=== PATIENT | male | born 1940 | race Caucasian/White ===

== ENCOUNTER 2018-01-16 08:23 | Inpatient (IN) | payer MEDICARE ==
--- NOTE | 2018-01-16 08:47 | ED ---
General Adult HPI - General Chief complaint: Shortness of Breath Stated complaint: SOB Source: patient Mode of arrival: ambulatory Limitations: no limitations - History of Present Illness Initial comments: Dictation was produced using [employer] dictation software. please excuse any grammatical, word or spelling errors. Chief Complaint: 77-year-old male with past medical history of coronary artery disease, quintuple bypass CABG, dyslipidemia, hypertension presents with shortness breath. History of Present Illness: Patient is a 77-year-old male presents with exertional shortness of breath. He states that he had a recent medication adjustment performed by his wild life manager to lower his blood pressure. After the change of medication he began having worsening exertional shortness of breath. He is also having increased weight gain and orthopnea. Patient denies any chest pain. He was seen by his family physician recently and started on Lasix. Denies any cough. No constitutional symptoms. Patient also had recent weight gain over the past 3 weeks. He states he gained approximately 10 pounds in 4 days. The ROS documented in this emergency department record has been reviewed and confirmed by me. Those systems with pertinent positive or negative responses have been documented in the HPI. All other systems are other negative and/or noncontributory. - Related Data Home Medications Medication Instructions Recorded Confirmed Aspirin EC [Ecotrin] 81 mg PO DAILY 08/31/14 08/31/14 Atorvastatin [Lipitor] 20 mg PO DAILY 08/31/14 08/31/14 Cholecalciferol [Vitamin D3] 2,000 unit PO DAILY@1200 08/31/14 08/31/14 Colesevelam [Welchol] 1,875 mg PO AC-BID 08/31/14 08/31/14 Furosemide [Lasix] 20 mg PO DAILY 08/31/14 08/31/14 Insulin NPH Hum/Reg Insulin Hm 45 unit SQ BID 08/31/14 08/31/14 [NovoLIN 70-30 100 UNIT/ML VIAL] Metoprolol Tartrate 75 mg PO BID 08/31/14 08/31/14 Multivitamins, Thera [Theragran] 1 each PO DAILY@1200 08/31/14 08/31/14 Pantoprazole Sodium 40 mg PO DAILY 08/31/14 08/31/14 Quinapril HCl [Accupril] 20 mg PO BID 08/31/14 08/31/14 metFORMIN HCL [Glucophage] 500 mg PO BID 08/31/14 08/31/14 Previous Rx's Medication Instructions Recorded Azithromycin [Zithromax Tri-Josue] 500 mg PO DAILY #3 tab 08/31/14 Allergies Allergy/AdvReac Type Severity Reaction Status Date / Time No Known Allergies Allergy Verified 01/16/18 08:28 Review of Systems ROS Statement: Those systems with pertinent positive or pertinent negative responses have been documented in the HPI. ROS Other: All systems not noted in ROS Statement are negative. Past Medical History Past Medical History: Coronary Artery Disease (CAD), Diabetes Mellitus, Hyperlipidemia, Hypertension History of Any Multi-Drug Resistant Organisms: None Reported Past Surgical History: Coronary Bypass/CABG Additional Past Surgical History / Comment(s): medical history - neuropathy, peripheral vascular disease. surgical history - angioplasty, foot surgery Past Psychological History: No Psychological Hx Reported Smoking Status: Never smoker Past Alcohol Use History: Occasional Past Drug Use History: None Reported General Exam - General Exam Comments Initial Comments: PHYSICAL EXAM: General Impression: Alert and oriented x3, not in acute distress HEENT: Normocephalic atraumatic, extra-ocular movements intact, pupils equal and reactive to light bilaterally, mucous membranes moist. Cardiovascular: Heart regular rate and rhythm, S1&S2 audible, no murmurs, rubs or gallops Chest: Lung crackling to the left posterior lung base Abdomen: Bowel sounds present, abdomen soft, non-tender, non-distended, no organomegaly Musculoskeletal: Pulses present and equal in all extremities, 2+ pitting edema Motor: Power 5/5 bilaterally, no focal deficits noted Neurological: CN II-XII grossly intact, no focal motor or sensory deficits noted Skin: Intact with no visualized rashes Psych: Normal affect and mood Limitations: no limitations Course Vital Signs 01/16/18 01/16/18 01/16/18 08:23 08:40 08:44 Temperature 98.8 F Pulse Rate 64 67 Respiratory 18 18 20 Rate Blood Pressure 150/73 156/72 O2 Sat by Pulse 95 95 Oximetry 01/16/18 09:30 Temperature Pulse Rate 62 Respiratory 18 Rate Blood Pressure 135/64 O2 Sat by Pulse 98 Oximetry Medical Decision Making - Medical Decision Making ED course: 77-year-old male with clinical presentation consistent with CHF exacerbation. Vital signs upon arrival are within acceptable limits. Patient does appear to be in mild respiratory distress however is not hypoxic. Does not require Supplemental oxygen at this time. No BiPAP indicated. Laboratory evaluation obtained. CBC is unremarkable. Coag panel is unremarkable. Metabolic panel shows elevation in creatinine of 1.49 which appears to be at his baseline compared to previous renal markers. Glucose is 147. Cardiac enzymes are negative. Urinalysis is negative. Chest x-ray does not show an acute processes. Clinical presentation is consistent for mild CHF exacerbation. Patient be admitted and would likely benefit from gentle diuresis and cardiology consultation. Patient given aspirin, Lasix. EKG Interpretation: A 12 lead EKG was obtained. It was interpreted by myself and attending physician. There is a P wave before every QRS complex. Rate is 65. Rhythm is sinus rhythm, IL interval 190, QS 104, QTC 455. QT is not prolonged. No ST segment depression or elevation. Overall, this EKG is unremarkable - Lab Data Result diagrams: 01/16/18 08:49 01/16/18 08:49 Lab Results 01/16/18 01/16/18 01/16/18 Range/Units 08:49 08:49 08:49 WBC 5.6 (3.8-10.6) k/uL RBC 4.00 L (4.30-5.90) m/uL Hgb 12.5 L (13.0-17.5) gm/dL Hct 39.4 (39.0-53.0) % MCV 98.5 (80.0-100.0) fL MCH 31.4 (25.0-35.0) pg MCHC 31.8 (31.0-37.0) g/dL RDW 13.1 (11.5-15.5) % Plt Count 171 (150-450) k/uL Neutrophils % 67 % Lymphocytes % 12 % Monocytes % 10 % Eosinophils % 8 % Basophils % 1 % Neutrophils # 3.7 (1.3-7.7) k/uL Lymphocytes # 0.7 L (1.0-4.8) k/uL Monocytes # 0.6 (0-1.0) k/uL Eosinophils # 0.4 (0-0.7) k/uL Basophils # 0.1 (0-0.2) k/uL PT (9.0-12.0) sec INR (<1.2) APTT (22.0-30.0) sec Sodium 135 L (137-145) mmol/L Potassium 5.0 (3.5-5.1) mmol/L Chloride 103 (98-107) mmol/L Carbon Dioxide 21 L (22-30) mmol/L Anion Gap 11 mmol/L BUN 34 H (9-20) mg/dL Creatinine 1.49 H (0.66-1.25) mg/dL Est GFR (CKD-EPI)AfAm 52 (>60 ml/min/1.73 sqM) Est GFR (CKD-EPI)NonAf 45 (>60 ml/min/1.73 sqM) Glucose 147 H (74-99) mg/dL Calcium 9.5 (8.4-10.2) mg/dL Magnesium 1.9 (1.6-2.3) mg/dL Total Bilirubin 1.3 (0.2-1.3) mg/dL AST 49 (17-59) U/L ALT 56 (21-72) U/L Alkaline Phosphatase 181 H (38-126) U/L Total Creatine Kinase 122 (55-170) U/L CK-MB (CK-2) 2.1 (0.0-2.4) ng/mL CK-MB (CK-2) Rel Index 1.7 Troponin I 0.025 (0.000-0.034) ng/mL NT-Pro-B Natriuret Pep pg/mL Total Protein 7.2 (6.3-8.2) g/dL Albumin 3.8 (3.5-5.0) g/dL Urine Color Urine Appearance (Clear) Urine pH (5.0-8.0) Ur Specific Stephenson (1.001-1.035) Urine Protein (Negative) Urine Glucose (UA) (Negative) Urine Ketones (Negative) Urine Blood (Negative) Urine Nitrite (Negative) Urine Bilirubin (Negative) Urine Urobilinogen (<2.0) mg/dL Ur Leukocyte Esterase (Negative) 01/16/18 01/16/18 01/16/18 Range/Units 08:49 08:49 08:49 WBC (3.8-10.6) k/uL RBC (4.30-5.90) m/uL Hgb (13.0-17.5) gm/dL Hct (39.0-53.0) % MCV (80.0-100.0) fL MCH (25.0-35.0) pg MCHC (31.0-37.0) g/dL RDW (11.5-15.5) % Plt Count (150-450) k/uL Neutrophils % % Lymphocytes % % Monocytes % % Eosinophils % % Basophils % % Neutrophils # (1.3-7.7) k/uL Lymphocytes # (1.0-4.8) k/uL Monocytes # (0-1.0) k/uL Eosinophils # (0-0.7) k/uL Basophils # (0-0.2) k/uL PT 10.3 (9.0-12.0) sec INR 1.1 (<1.2) APTT 23.0 (22.0-30.0) sec Sodium (137-145) mmol/L Potassium (3.5-5.1) mmol/L Chloride (98-107) mmol/L Carbon Dioxide (22-30) mmol/L Anion Gap mmol/L BUN (9-20) mg/dL Creatinine (0.66-1.25) mg/dL Est GFR (CKD-EPI)AfAm (>60 ml/min/1.73 sqM) Est GFR (CKD-EPI)NonAf (>60 ml/min/1.73 sqM) Glucose (74-99) mg/dL Calcium (8.4-10.2) mg/dL Magnesium (1.6-2.3) mg/dL Total Bilirubin (0.2-1.3) mg/dL AST (17-59) U/L ALT (21-72) U/L Alkaline Phosphatase (38-126) U/L Total Creatine Kinase (55-170) U/L CK-MB (CK-2) (0.0-2.4) ng/mL CK-MB (CK-2) Rel Index Troponin I (0.000-0.034) ng/mL NT-Pro-B Natriuret Pep 2130 pg/mL Total Protein (6.3-8.2) g/dL Albumin (3.5-5.0) g/dL Urine Color Light Yellow Urine Appearance Clear (Clear) Urine pH 5.0 (5.0-8.0) Ur Specific Stephenson 1.008 (1.001-1.035) Urine Protein Negative (Negative) Urine Glucose (UA) Negative (Negative) Urine Ketones Negative (Negative) Urine Blood Negative (Negative) Urine Nitrite Negative (Negative) Urine Bilirubin Negative (Negative) Urine Urobilinogen <2.0 (<2.0) mg/dL Ur Leukocyte Esterase Negative (Negative) Disposition Clinical Impression: Congestive heart failure Disposition: ADMITTED IP TO THIS HOSP Condition: Fair Referrals: Sam Rousseau MD [Primary Care Provider] - 1-2 days Time of Disposition: 10:20 Decision Time: 10:20
[2018-01-16] MEDS ORDERED: ASPIRIN 81 MG PO STA (08:49)
[2018-01-16] MEDS ORDERED: FUROSEMIDE 10 MG/ML 4 ML VIAL IV STA (08:49)
[2018-01-16 09:13] LABS: Appearance,Urine Clear (Clear); Bilirubin,Urine Negative (Negative); Blood,Urine Negative (Negative); Color,Urine Light Yellow; Glucose,Urine (UA) Negative (Negative); Ketones,Urine Negative (Negative); Leukocyte Esterase,Urine Negative (Negative); Nitrite,Urine Negative (Negative); Protein,Urine Negative (Negative); Specific Gravity,Urine 1.008 (1.001-1.035); Urobilinogen,Urine <2.0 mg/dL (<2.0)
[2018-01-16 09:16] LABS: Basophils # (A) 0.1 k/uL (0-0.2); Basophils % (A) 1 %; Eosinophils # (A) 0.4 k/uL (0-0.7); Eosinophils % (A) 8 %; HCT 39.4 % (39.0-53.0); HGB 12.5 gm/dL (13.0-17.5); Lymphocytes # (A) 0.7 k/uL (1.0-4.8); Lymphocytes % (A) 12 %; MCH 31.4 pg (25.0-35.0); MCHC 31.8 g/dL (31.0-37.0); MCV 98.5 fL (80.0-100.0); Mean Platelet Volume 7.1; Monocytes # (A) 0.6 k/uL (0-1.0); Monocytes % (A) 10 %; Neutrophils # (A) 3.7 k/uL (1.3-7.7); Neutrophils % (A) 67 %; Platelet Count 171 k/uL (150-450); RDW 13.1 % (11.5-15.5); WBC 5.6 k/uL (3.8-10.6)
--- NOTE | 2018-01-16 09:19 | XR ---
EXAMINATION TYPE: XR chest 2V DATE OF EXAM: 01/16/2018 COMPARISON: 08/31/2014 HISTORY: Shortness of breath TECHNIQUE: Frontal and lateral views of the chest are obtained. FINDINGS: Scattered senescent parenchymal changes noted. Hyperinflation compatible with COPD. No evidence for infiltrate. No evidence for atelectasis. Heart size is enlarged. No evidence for congestive failure. Mediastinal structures are stable and grossly unremarkable. No evidence for hilar prominence. Degenerative changes dorsal spine. IMPRESSION: 1. No evidence for acute pulmonary disease.
[2018-01-16 09:21] LABS: Albumin 3.8 g/dL (3.5-5.0); Calcium 9.5 mg/dL (8.4-10.2); Magnesium 1.9 mg/dL (1.6-2.3); Total Bilirubin 1.3 mg/dL (0.2-1.3); Total Protein 7.2 g/dL (6.3-8.2)
[2018-01-16 09:23] LABS: INR 1.1 (<1.2); Prothrombin Time 10.3 sec (9.0-12.0)
[2018-01-16 10:00] LABS: Creatine Kinase MB 2.1 ng/mL (0.0-2.4); Troponin I 0.025 ng/mL (0.000-0.034)
[2018-01-16] MEDS ORDERED: NALOXONE 0.4 MG/ML 1 ML VIAL IV PRN (10:18)
[2018-01-16 11:41] LABS: Glucose,Whole Blood 98 mg/dL (75-99)
[2018-01-16 16:42] LABS: Glucose,Whole Blood 144 mg/dL (75-99)
[2018-01-16] MEDS: COLESEVELAM 625 MG TAB PO SCH (17:29)
[2018-01-16] MEDS: metFORMIN 500 MG TAB PO SCH (17:29)
[2018-01-16] MEDS: INSULN ASP PRT/INSULIN ASPART 100 UNIT/ML 10 ML VIAL SQ SCH (17:39)
[2018-01-16] MEDS ORDERED: LACTULOSE 20 GM/30 ML CUP PO PRN (17:56)
[2018-01-16] MEDS ORDERED: MAGNESIUM HYDROXIDE 2,400 MG/10 ML CUP PO PRN (17:56)
[2018-01-16] MEDS ORDERED: LORazepam 0.5 MG TAB PO PRN (17:56)
[2018-01-16] MEDS ORDERED: ACETAMINOPHEN TAB 325 MG TAB PO PRN (17:56)
[2018-01-16] MEDS ORDERED: ONDANSETRON 4 MG/2 ML VIAL IVP PRN (17:56)
[2018-01-16] MEDS ORDERED: MELATONIN 3 MG TABLET PO PRN (17:56)
[2018-01-16] MEDS ORDERED: CALCIUM CARBONATE 500 MG CHEWABLE PO PRN (17:56)
[2018-01-16] MEDS ORDERED: FUROSEMIDE 10 MG/ML 10 ML VIAL IV SCH (18:00)
[2018-01-16] MEDS: ENOXAPARIN 40 MG/0.4 ML SYRINGE SQ SCH (18:38)
[2018-01-16] MEDS: FUROSEMIDE 250 MG in SODIUM CHLORIDE 0.9% 225 ML IVP SCH (18:38)
[2018-01-16] MEDS: METOPROLOL TARTRATE 25 MG TAB PO SCH (20:41)
[2018-01-16] MEDS: LISINOPRIL 20 MG TAB PO SCH (20:41)
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
[2018-01-16 21:12] LABS: Glucose,Whole Blood 62 mg/dL (75-99)
[2018-01-16 21:33] LABS: Glucose,Whole Blood 69 mg/dL (75-99)
[2018-01-16 21:50] LABS: Glucose,Whole Blood 86 mg/dL (75-99)
[2018-01-17 01:01] LABS: Glucose,Whole Blood 36 mg/dL (75-99)
[2018-01-17 01:10] LABS: Glucose,Whole Blood 57 mg/dL (75-99)
[2018-01-17 01:30] LABS: Glucose,Whole Blood 123 mg/dL (75-99)
[2018-01-17 06:02] LABS: Glucose,Whole Blood 196 mg/dL (75-99)
[2018-01-17] MEDS: metFORMIN 500 MG TAB PO SCH ×2 (06:21→17:20)
[2018-01-17] MEDS: COLESEVELAM 625 MG TAB PO SCH ×2 (06:21→17:20)
[2018-01-17 06:57] LABS: Calcium 9.8 mg/dL (8.4-10.2); Potassium 4.7 mmol/L (3.5-5.1)
[2018-01-17] MEDS ORDERED: HYDROCHLOROTHIAZIDE 25 MG TAB PO SCH (09:00)
[2018-01-17] MEDS: METOPROLOL TARTRATE 25 MG TAB PO SCH ×2 (09:43→21:27)
[2018-01-17] MEDS: ENOXAPARIN 40 MG/0.4 ML SYRINGE SQ SCH (09:44)
[2018-01-17] MEDS: LISINOPRIL 20 MG TAB PO SCH ×2 (09:44→21:27)
[2018-01-17 10:41] LABS: Glucose,Whole Blood 165 mg/dL (75-99)
--- NOTE | 2018-01-17 11:54 | ECHOF ---
Referral Reason:chf MEASUREMENTS -------- HEIGHT: 175.3 cm WEIGHT: 115.7 kg BP: 179/84 RVIDd: 3.7 cm (< 3.3) IVSd: 1.4 cm (0.6 - 1.1) LVIDd: 5.6 cm (3.9 - 5.3) LVPWd: 1.1 cm (0.6 - 1.1) IVSs: 1.6 cm LVIDs: 4.6 cm LVPWs: 1.1 cm LA Diam: 4.1 cm (2.7 - 3.8) LAESV Index (A-L): 35.32 ml/m MV EXCURSION: 19.436 mm (> 18.000) MV EF SLOPE: 60 mm/s (70 - 150) EPSS: 0.6 cm MV E Tano: 1.09 m/s MV DecT: 310 ms MV A Tano: 0.63 m/s MV E/A Ratio: 1.73 RAP: 5.00 mmHg RVSP: 25.72 mmHg FINDINGS -------- Sinus rhythm. This was a techncally difficult study with suboptimal views, , Lumason utilized for enhancement of im ages. The left ventricular size is normal. There is borderline concentric left ventricular hypertrophy. Overall left ventricular systolic function is mildly impaired with, an EF between 45 - 50 %. Basal inferior LV wall motion is hypokinetic. Basal inferoseptal LV wall motion is hypokinetic. Mid inferior LV wall motion is hypokinetic. Mid inferoseptal LV wall motion is hypokinetic. Anterse ptal Hypokinesis Inferior basal Hypokinesis The right ventricle is normal in size. LA is moderately dilated 34-39 ml/m2 The right atrium is mildly enlarged. 5.0mg OF Lumason UTLIZED: 2 OR MORE WALL SEGMENTS NOT VISUALIZED. There is mild aortic valve sclerosis. There is no evidence of aortic regurgitation. Mild mitral annular calcification present. Mild mitral regurgitation is present. Mild tricuspid regurgitation present. There is no evidence of pulmonary hypertension. The right v entricular systolic pressure, as measured by Doppler, is 25.72mmHg. There is no pulmonic regurgitation present. The aortic root size is normal. There is no pericardial effusion. CONCLUSIONS -------- 1. Sinus rhythm. 2. This was a techncally difficult study with suboptimal views, , Lumason utilized for enhancement of images. 3. The left ventricular size is normal. 4. There is borderline concentric left ventricular hypertrophy. 5. Overall left ventricular systolic function is mildly impaired with, an EF between 45 - 50 %. 6. Basal inferior LV wall motion is hypokinetic. 7. Basal inferoseptal LV wall motion is hypokinetic. 8. Mid inferior LV wall motion is hypokinetic. 9. Mid inferoseptal LV wall motion is hypokinetic. 10. Anterseptal Hypokinesis 11. Inferior basal Hypokinesis 12. LA is moderately dilated 34-39 ml/m2 13. 5.0mg OF Lumason UTLIZED: 2 OR MORE WALL SEGMENTS NOT VISUALIZED. 14. There is mild aortic valve sclerosis. 15. Mild mitral annular calcification present. 16. Mild mitral regurgitation is present. 17. Mild tricuspid regurgitation present. 18. There is no evidence of pulmonary hypertension. 19. There is no pulmonic regurgitation present. 20. The aortic root size is normal. 21. There is no pericardial effusion. MUSIC MANAGER: Michaela John RDCS
[2018-01-17 12:00] LABS: Glucose,Whole Blood 151 mg/dL (75-99)
[2018-01-17] MEDS: INSULN ASP PRT/INSULIN ASPART 100 UNIT/ML 10 ML VIAL SQ SCH ×2 (12:06→18:19)
[2018-01-17] MEDS: FERROUS SULFATE 325 MG TAB PO SCH (12:11)
[2018-01-17] MEDS: CHOLECALCIFEROL 1,000 UNIT TAB PO SCH (12:11)
[2018-01-17] MEDS: MULTIVITAMINS, THERA 1 EACH TAB PO SCH (12:11)
[2018-01-17] MEDS ORDERED: INSULIN NPH/REG INSULIN 70/30 300 UNIT/3 ML VIAL SQ ONE (12:30)
[2018-01-17] MEDS: INSULIN ASPART 100 UNIT/ML 1 ML 10 ML VIAL SQ SCH ×3 (12:43→21:23)
[2018-01-17 14:28] VITALS: BMI 37.8
[2018-01-17] MEDS: FUROSEMIDE 250 MG in SODIUM CHLORIDE 0.9% 225 ML IVP SCH (16:24)
[2018-01-17 17:08] LABS: Glucose,Whole Blood 150 mg/dL (75-99)
[2018-01-17 21:23] LABS: Glucose,Whole Blood 127 mg/dL (75-99)
--- NOTE | 2018-01-17 22:44 | P.PN ---
Progress Note - Text Progress Note Date: 01/17/18 Date of service-01/17/2018 Presenting complaint: Short of breath Interval history: Patient admitted with CHF exacerbation. Was put on IV Lasix drip. Has put out close to 7 L in negative fluid balance. Breathing is better. Coming down. Tolerating his diet. No fever or chills. Minimal cough. Sitting up. At the edge of the edge of the bed. Review of systems: Was done for constitutional, cardiovascular, GI, pulmonary. relevant finding as above Current medications are reviewed that included: IV Lasix drip On examination: VITAL SIGNS: [97, 61, 16, 149-70, 97% on room air] GENERAL APPEARANCE: Sitting at the edge of the bed, more comfortable HEENT: Normal external appearance of nose and ear. Oral cavity normal EYES: Pupils equal. Conjunctiva normal. NECK: JVD possibly raised mass not palpable. RESPIRATORY: Respiratory effort increased, lungs decreased breath sounds CARDIOVASCULAR: First and second sounds normal. Decreased edema. ABDOMEN: Soft. Liver and spleen not palpable. No tenderness. No mass palpable. PSYCHIATRY: Alert and oriented x3. Mood and affect normal. Investigations: Potassium 4.7, BUN 36, creatinine 1.5 -2-D echo shows EF of 45-50% with multiple wall motion abnormalities Assessment: -Acute and chronic congestive heart failure exacerbation from systolic dysfunction EF 45-50% underlying coronary artery disease, slow to respond patient on IV Lasix drip -Coronary artery disease with prior history of carotid bypass -Diabetes mellitus type 2, chronically on insulin -Essential hypertension -Hyperlipidemia -Primary osteoarthritis multiple joints -Peripheral arterial disease -Chronic kidney disease stage III probably from nephrosclerosis -BPH -Troponin leak from underlying CHF Plan: We'll keep the patient on IV Lasix drip overnight. Hopefully can be so short order Lasix the morning. Follow electrolytes closely. Care was discussed the patient and at the bedside. Questions were answered. Repeat chest x-ray in the morning
[2018-01-18 01:01] LABS: Glucose,Whole Blood 51 mg/dL (75-99)
[2018-01-18 01:30] LABS: Glucose,Whole Blood 63 mg/dL (75-99)
[2018-01-18 02:11] LABS: Glucose,Whole Blood 139 mg/dL (75-99)
[2018-01-18 06:16] LABS: Glucose,Whole Blood 130 mg/dL (75-99)
[2018-01-18] MEDS: INSULIN ASPART 100 UNIT/ML 1 ML 10 ML VIAL SQ SCH ×4 (06:21→21:58)
[2018-01-18 06:26] LABS: Calcium 9.8 mg/dL (8.4-10.2); Potassium 4.3 mmol/L (3.5-5.1)
[2018-01-18] MEDS: COLESEVELAM 625 MG TAB PO SCH ×2 (07:03→17:25)
[2018-01-18] MEDS: metFORMIN 500 MG TAB PO SCH ×2 (07:04→17:25)
[2018-01-18] MEDS: METOPROLOL TARTRATE 25 MG TAB PO SCH ×2 (08:06→20:15)
[2018-01-18] MEDS: ENOXAPARIN 40 MG/0.4 ML SYRINGE SQ SCH (08:06)
[2018-01-18] MEDS: LISINOPRIL 20 MG TAB PO SCH (08:06)
[2018-01-18] MEDS: INSULN ASP PRT/INSULIN ASPART 100 UNIT/ML 10 ML VIAL SQ SCH ×2 (10:30→17:11)
[2018-01-18 11:53] LABS: Glucose,Whole Blood 177 mg/dL (75-99)
[2018-01-18] MEDS: FERROUS SULFATE 325 MG TAB PO SCH (12:01)
[2018-01-18] MEDS: CHOLECALCIFEROL 1,000 UNIT TAB PO SCH (12:01)
[2018-01-18] MEDS: MULTIVITAMINS, THERA 1 EACH TAB PO SCH (12:01)
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
--- NOTE | 2018-01-18 13:47 | P.PN ---
Subjective Progress Note Date: 01/18/18 This is 77-year-old gentleman who follows regularly with Dr. Jeffers in the office. He has known history of coronary artery disease with prior bypass surgery, CABG was in 2012, underwent HEREDIA to the LAD, saphenous vein graft to the RCA, saphenous vein graft to the OM1 and OM 3, saphenous vein graft to the diagonal branch, hypertension, hyperlipidemia, diabetes, who presents to the hospital with symptoms of a 2 to three-week duration of progressively worsening shortness of breath, patient also has been developing significant peripheral edema. He states that he sustained Dr. Jeffers in the office couple of months ago, blood pressure medication was changed and since then he states that he has not felt well in general, he's been quite short of breath, and is noticed significant edema. For this reason he states that he stopped taking the medication, upon review of the office noted appears that it was Norvasc that was increased at that visit. Symptoms initially started according to the patient has exertional shortness of breath and it progressed to shortness of breath at rest as well, positive orthopnea, positive peripheral edema. The last echocardiogram with Doppler study performed in the office was in 2016 which revealed an ejection fraction of 50%, mild TR and mild MR. Blood pressure 148/70 with a heart rate 60s to 70s, 97% on room air. White blood cell count 5.6, hemoglobin 12.5, platelet count 171. Sodium 135, potassium 4.7 , BUN 36, creatinine 1.5. Initial troponin 0.025, BNP 2130. Patient was initiated on IV Lasix drip, weight down 2 kg. Echo with Doppler study performed here shows an ejection fraction of 45-50%, basal and mid inferior and anterior septal wall motion hypokinesia, anterior septal and inferior basal hypokinesia. 01/18/2018 Patient was seen and examined this morning, diuresed well through the night last night, breathing is stable, edema significantly improved. Weight is down 6 kg. Sodium 136, potassium 4.3, BUN 37, creatinine 1.4. Blood pressure 114/ 60 with a heart rate in the 60s. We will discontinue the Lasix drip today and start the patient on oral Lasix. Plan on possible discharge home in 24 hours if stable. He will follow-up with Dr. Jeffers and possibly undergo stress testing or heart catheterization as an outpatient. Objective - Vital Signs Vital signs: Vital Signs Temp 98 F 01/18/18 04:00 Pulse 72 01/18/18 08:00 Resp 16 01/18/18 08:00 BP 142/100 01/18/18 08:00 Pulse Ox 97 01/18/18 08:00 Intake & Output 01/17/18 01/18/18 01/18/18 18:59 06:59 18:59 Intake Total 1887.667 540 840 Output Total 3475 3950 650 Balance -1587.333 -3410 190 Weight 116.1 kg 110.9 kg Intake: Intake, IV Titration 217.667 Amount Furosemide 250 mg In 217.667 Sodium Chloride 0.9% 225 ml @ 10 MG/HR 10 mls/hr IVP .Q24H [facility] Rx#: [id number] Oral 1670 540 840 Output: Urine 3475 3950 650 Other: Voiding Method Toilet Urinal # Voids 3 - Exam PHYSICAL EXAMINATION: GENERAL: 77-year-old gentleman in no acute distress at the time of my examination HEENT: Head is atraumatic, normocephalic. Pupils equal, round. Sclera anicteric. Conjunctiva are clear. Mucous membranes of the mouth are moist. Neck is supple. There is no elevated jugular venous pressure.] bruit is heard. HEART EXAMINATION: S1 and S2 systolic murmur is heard. CHEST EXAMINATION:[ Lungs are clear to auscultation and precussion. No chest wall tenderness is noted on palpation or with deep breathing.] ABDOMEN: [ Soft, nontender. Bowel sounds are heard. No organomegaly noted]. EXTREMITIES:[ 2+ peripheral pulses with trace evidence of peripheral edema and no calf tenderness noted]. Bilateral Mukund wraps in place. NEUROLOGIC [patient is awake, alert and oriented ?-3.] . - Labs CBC & Chem 7: 01/16/18 08:49 01/18/18 05:21 Labs: Abnormal Lab Results - Last 24 Hours (Table) 01/17/18 01/17/18 01/18/18 Range/Units 16:47 21:22 01:00 Sodium (137-145) mmol/L Chloride (98-107) mmol/L Carbon Dioxide (22-30) mmol/L BUN (9-20) mg/dL Creatinine (0.66-1.25) mg/dL Glucose (74-99) mg/dL POC Glucose (mg/dL) 150 H 127 H (75-99) mg/dL Troponin I 0.035 H* (0.000-0.034) ng/mL 01/18/18 01/18/18 01/18/18 Range/Units 01:00 01:15 01:49 Sodium (137-145) mmol/L Chloride (98-107) mmol/L Carbon Dioxide (22-30) mmol/L BUN (9-20) mg/dL Creatinine (0.66-1.25) mg/dL Glucose (74-99) mg/dL POC Glucose (mg/dL) 51 L 63 L 139 H (75-99) mg/dL Troponin I (0.000-0.034) ng/mL 01/18/18 01/18/18 01/18/18 Range/Units 05:21 06:15 11:51 Sodium 136 L (137-145) mmol/L Chloride 96 L (98-107) mmol/L Carbon Dioxide 32 H (22-30) mmol/L BUN 37 H (9-20) mg/dL Creatinine 1.40 H (0.66-1.25) mg/dL Glucose 119 H (74-99) mg/dL POC Glucose (mg/dL) 130 H 177 H (75-99) mg/dL Troponin I (0.000-0.034) ng/mL Assessment and Plan Plan: Assessment and plan #1 systolic congestive heart failure acute on chronic #2 known history of coronary artery disease with prior bypass surgery #3 diabetes 4 hypertension 5 hyperlipidemia Plan We will discontinue the Lasix drip today and start patient on oral diuretics. Have Him up ambulating in the hallway, plan for possible discharge home in the morning if stable, follow-up with Dr. Jeffers, outpatient stress test or heart catheterization down the road. DNP note has been reviewed, I agree with a documented findings and plan of care. Patient was seen and examined.
--- NOTE | 2018-01-18 13:59 | XR ---
EXAMINATION TYPE: XR chest 2V DATE OF EXAM: 01/18/2018 COMPARISON: 01/16/2018 HISTORY: 77 year-old male shortness of breath for 3 weeks and leg swelling, assess CHF TECHNIQUE: Frontal and lateral views FINDINGS: Heart mildly enlarged. Perihilar densities and mild interstitial prominence. No consolidation or pleu ral effusion. Median sternotomy wires are present. IMPRESSION: Similar cardiomegaly and mild interstitial changes. Correlate for mild pulmonary vascular congestion. There is no pulmonary edema.
[2018-01-18] MEDS: FUROSEMIDE 40 MG TAB PO SCH (15:35)
--- NOTE | 2018-01-18 16:19 | P.PN ---
Progress Note - Text Progress Note Date: 01/18/18 Presenting complaint: Short of breath Interval history: Patient admitted with CHF exacerbation. Was put on IV Lasix drip. Has put on about 12 L in negative fluid balance.. Breathing much improved. Edema has gone down. Tolerating a diet. Several members at the bedside including his . Review of systems: Was done for constitutional, cardiovascular, GI, pulmonary. relevant finding as above Current medications are reviewed that included: IV Lasix drip On examination: VITAL SIGNS: [97.2, stage II, 16, 142/60, 97% on room air] GENERAL APPEARANCE: Sitting up, comfortable HEENT: Normal external appearance of nose and ear. Oral cavity normal EYES: Pupils equal. Conjunctiva normal. NECK: JVD possibly raised mass not palpable. RESPIRATORY: Respiratory effort normal, decreased breath sounds CARDIOVASCULAR: First and second sounds normal. Decreased edema. ABDOMEN: Soft. Liver and spleen not palpable. No tenderness. No mass palpable. PSYCHIATRY: Alert and oriented x3. Mood and affect normal. Investigations: Potassium 4.3, BUN 37, creatinine 1.40 -2-D echo shows EF of 45-50% with multiple wall motion abnormalities Assessment: -Acute and chronic congestive heart failure exacerbation from systolic dysfunction EF 45-50% underlying coronary artery disease, responded well to Lasix drip. That is being discontinued today. -Coronary artery disease with prior history of carotid bypass -Diabetes mellitus type 2, chronically on insulin -Essential hypertension -Hyperlipidemia -Primary osteoarthritis multiple joints -Peripheral arterial disease -Chronic kidney disease stage III probably from nephrosclerosis -BPH -Troponin leak from underlying CHF Plan: Doing well. IV Lasix drip discontinued this morning. Being switched over to by mouth Lasix. Encouraged to ambulate. Care was discussed at length with the family members the bedside. Hopefully discharge tomorrow
[2018-01-18 16:51] LABS: Glucose,Whole Blood 167 mg/dL (75-99)
[2018-01-18 20:55] LABS: Glucose,Whole Blood 207 mg/dL (75-99)
[2018-01-18] MEDS ORDERED: ATORVASTATIN 40 MG TAB PO SCH (21:00)
[2018-01-19 05:28] VITALS: RESP 16
[2018-01-19 06:13] LABS: Glucose,Whole Blood 129 mg/dL (75-99)
[2018-01-19] MEDS: INSULIN ASPART 100 UNIT/ML 1 ML 10 ML VIAL SQ SCH ×2 (06:26→11:48)
[2018-01-19] MEDS: COLESEVELAM 625 MG TAB PO SCH (06:27)
[2018-01-19] MEDS: metFORMIN 500 MG TAB PO SCH (06:28)
[2018-01-19 06:50] LABS: Calcium 9.6 mg/dL (8.4-10.2); Potassium 4.4 mmol/L (3.5-5.1)
[2018-01-19] MEDS: INSULN ASP PRT/INSULIN ASPART 100 UNIT/ML 10 ML VIAL SQ SCH (07:17)
[2018-01-19] MEDS: FUROSEMIDE 40 MG TAB PO SCH (08:25)
[2018-01-19] MEDS: METOPROLOL TARTRATE 25 MG TAB PO SCH (08:25)
[2018-01-19] MEDS: ENOXAPARIN 40 MG/0.4 ML SYRINGE SQ SCH (08:25)
[2018-01-19] MEDS: MULTIVITAMINS, THERA 1 EACH TAB PO SCH (11:33)
[2018-01-19] MEDS: CHOLECALCIFEROL 1,000 UNIT TAB PO SCH (11:33)
[2018-01-19] MEDS: FERROUS SULFATE 325 MG TAB PO SCH (11:33)
[2018-01-19 14:11] VITALS: BP 138/69; PULSE 63; TEMP 97.4
[2018-01-19 18:14] LABS: Glucose,Whole Blood 118 mg/dL (75-99)
--- NOTE | 2018-01-19 22:54 | P.DS ---
Providers Date of admission: 01/16/18 10:18 Expected date of discharge: 01/19/18 Attending physician: Teodoro Curtis Consults: 01/16/18 08:48 Consult Physician Routine Consulting Provider: Ros Jeffers Consult Reason/Comments: chf exacerbation Do you want consulting provider notified?: Yes Primary care physician: [facility] Course: Final diagnoses: -Acute and chronic congestive heart failure exacerbation from systolic dysfunction EF 45-50% underlying coronary artery disease, -Coronary artery disease with prior history of carotid bypass -Diabetes mellitus type 2, chronically on insulin -Essential hypertension -Hyperlipidemia -Primary osteoarthritis multiple joints -Peripheral arterial disease -Chronic kidney disease stage III probably from nephrosclerosis -BPH -Troponin leak from underlying CHF Hospital course: Admitted with CHF exacerbation. Was put on Lasix drip. Patient is close to 12 L in negative fluid balance. 2-D echo showed EF of 45-50%. Doing much better now. Today sitting up comfortable. Care was discussed with the patient and . Questions were answered. On examination: 97.4, 63, 16, 1:, 94% room air Lungs-clear Cardiovascular-edema minimal Labs: BUN 31, creatinine 1.5 Disposition: Home Patient Condition at Discharge: Stable Plan - Discharge Summary Discharge Rx Participant: No New Discharge Prescriptions: New Atorvastatin [Lipitor] 40 mg PO HS #30 tab Furosemide [Lasix] 40 mg PO BID@0900,1600 #60 tab Continue Multivitamins, Thera [Multivitamin (formulary)] 1 tab PO DAILY@1200 Colesevelam [Welchol] 1,875 mg PO AC-BID Cholecalciferol [Vitamin D3] 2,000 unit PO DAILY@1200 Metoprolol Tartrate 75 mg PO BID Ferrous Sulfate [Iron (65 MG Elemental)] 325 mg PO DAILY metFORMIN HCL [metFORMIN HCL ER] 1,000 mg PO BID Changed Insulin Aspart Protam & Aspart [NovoLOG MIX 70-30 Flexpen] 36 unit SQ AC-BID #0 Discontinued Quinapril HCl [Accupril] 20 mg PO BID Furosemide [Lasix] 40 mg PO DAILY Atorvastatin [Lipitor] 10 mg PO MO Furosemide [Lasix] 20 mg PO HS Hydrochlorothiazide [Hydrodiuril] 25 mg PO DAILY Discharge Medication List Cholecalciferol [Vitamin D3] 2,000 unit PO DAILY@1200 08/31/14 [History] Colesevelam [Welchol] 1,875 mg PO AC-BID 08/31/14 [History] Metoprolol Tartrate 75 mg PO BID 08/31/14 [History] Multivitamins, Thera [Multivitamin (formulary)] 1 tab PO DAILY@1200 08/31/14 [ History] Ferrous Sulfate [Iron (65 MG Elemental)] 325 mg PO DAILY 01/16/18 [History] metFORMIN HCL [metFORMIN HCL ER] 1,000 mg PO BID 01/16/18 [History] Atorvastatin [Lipitor] 40 mg PO HS #30 tab 01/19/18 [Rx] Furosemide [Lasix] 40 mg PO BID@0900,1600 #60 tab 01/19/18 [Rx] Insulin Aspart Protam & Aspart [NovoLOG MIX 70-30 Flexpen] 36 unit SQ AC-BID #0 01/19/18 [Rx] Follow up Appointment(s)/Referral(s): Ros Jeffers MD [STAFF PHYSICIAN] - 1 Week (please call office saturday to make follow up with Dr Jeffers) Sam Rousseau MD [Primary Care Provider] - 3 Days (call office saturday to make appointment, closed ) Patient Instructions/Handouts: Heart Failure (DC) Discharge Disposition: HOME SELF-CARE
[2018-01-20] MEDS ORDERED: ATORVASTATIN 10 MG TAB PO SCH (21:00)
== END 2018-01-19 15:05 | disposition home or self-care (01) | DRG 291 ==
LOC: EC 08:23 → 6SEL 10:18
PROVIDERS: ADMIT Hospitalist; ATTEND Hospitalist
DX: I13.0 Hypertensive heart and chronic kidney disease with heart failure and stage 1 through stage 4 chronic kidney disease, or unspecified chronic kidney disease (principal); I50.23 Acute on chronic systolic (congestive) heart failure; E11.22 Type 2 diabetes mellitus with diabetic chronic kidney disease; E11.51 Type 2 diabetes mellitus with diabetic peripheral angiopathy without gangrene; E11.649 Type 2 diabetes mellitus with hypoglycemia without coma; E78.5 Hyperlipidemia, unspecified; I25.10 Atherosclerotic heart disease of native coronary artery without angina pectoris; M15.9 Polyosteoarthritis, unspecified; N18.3 Chronic kidney disease, stage 3 (moderate); N40.0 Benign prostatic hyperplasia without lower urinary tract symptoms; R06.03 Acute respiratory distress; E11.40 Type 2 diabetes mellitus with diabetic neuropathy, unspecified; R77.9 Abnormality of plasma protein, unspecified; Z79.4 Long term (current) use of insulin; Z79.82 Long term (current) use of aspirin; Z79.899 Other long term (current) drug therapy; Z95.1 Presence of aortocoronary bypass graft; Z87.891 Personal history of nicotine dependence; Z85.828 Personal history of other malignant neoplasm of skin; Z98.42 Cataract extraction status, left eye; Z98.41 Cataract extraction status, right eye; Z96.1 Presence of intraocular lens; Z84.1 Family history of disorders of kidney and ureter; Z82.0 Family history of epilepsy and other diseases of the nervous system
CPT/HCPCS: 36415; 71046; 80048; 80053; 81003; 82550; 82553; 82947; 83735; 83880; 84484; 85025; 85610; 85730; 93005; 93306; 96374; 99285

== ENCOUNTER 2018-09-01 08:58 | Inpatient (IN) | payer MEDICARE ==
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
[2018-09-01 10:21] LABS: Basophils % (A) 0 %; Eosinophils # (A) 0.4 k/uL (0-0.7); Eosinophils % (A) 8 %; HCT 32.7 % (39.0-53.0); HGB 10.5 gm/dL (13.0-17.5); Lymphocytes # (A) 0.4 k/uL (1.0-4.8); Lymphocytes % (A) 8 %; MCHC 32.2 g/dL (31.0-37.0); MCV 93.4 fL (80.0-100.0); Mean Platelet Volume 7.9; Monocytes # (A) 0.4 k/uL (0-1.0); Monocytes % (A) 8 %; Neutrophils # (A) 3.6 k/uL (1.3-7.7); Neutrophils % (A) 72 %; Platelet Count 138 k/uL (150-450); RDW 14.3 % (11.5-15.5)
[2018-09-01 10:30] LABS: Albumin 3.1 g/dL (3.5-5.0); Calcium 9.1 mg/dL (8.4-10.2)
[2018-09-01 10:36] LABS: Prothrombin Time 11.1 sec (9.0-12.0)
[2018-09-01] MEDS ORDERED: NALOXONE 0.4 MG/ML 1 ML VIAL IV PRN (11:30)
[2018-09-01 12:38] VITALS: BMI 37.0
[2018-09-01 12:41] LABS: Glucose,Whole Blood 63 mg/dL (75-99)
[2018-09-01 13:01] LABS: Glucose,Whole Blood 87 mg/dL (75-99)
[2018-09-01 17:11] LABS: Glucose,Whole Blood 108 mg/dL (75-99)
[2018-09-01] MEDS ORDERED: INSULN ASP PRT/INSULIN ASPART 100 UNIT/ML 10 ML VIAL SQ SCH (18:15)
[2018-09-01] MEDS ORDERED: CALCIUM CARBONATE 500 MG CHEWABLE PO PRN (18:38)
[2018-09-01] MEDS ORDERED: MELATONIN 3 MG TABLET PO PRN (18:38)
[2018-09-01] MEDS ORDERED: ACETAMINOPHEN TAB 325 MG TAB PO PRN (18:38)
[2018-09-01] MEDS ORDERED: LACTULOSE 20 GM/30 ML CUP PO PRN (18:38)
[2018-09-01] MEDS ORDERED: ONDANSETRON 4 MG/2 ML VIAL IVP PRN (18:38)
[2018-09-01] MEDS: INSULN ASP PRT/INSULIN ASPART 100 UNIT/ML 10 ML VIAL SQ SCH (19:48)
[2018-09-01] MEDS: FUROSEMIDE 10 MG/ML 10 ML VIAL IV SCH (19:51)
[2018-09-01] MEDS: COLESEVELAM 625 MG TAB PO SCH (19:52)
[2018-09-01] MEDS: METOPROLOL TARTRATE 25 MG TAB PO SCH (19:55)
[2018-09-01] MEDS: FERROUS SULFATE 325 MG TAB PO SCH (19:55)
[2018-09-01 20:02] LABS: Glucose,Whole Blood 213 mg/dL (75-99)
--- NOTE | 2018-09-01 21:36 | XR ---
EXAMINATION TYPE: XR chest 2V DATE OF EXAM: 09/01/2018 COMPARISON: Chest x-ray January 18, 2018 HISTORY: History of liver cancer with shortness of breath after paracentesis today. TECHNIQUE: Frontal and lateral views of the chest are obtained. FINDINGS: Post-CABG changes with increased clips and sternal wires is redemonstrated. There is persi stent cardiomegaly with atherosclerotic thoracic aorta. There is new left basilar opacity. Right lung appears clear. Multilevel spurring in the thoracic spine is noted. IMPRESSION: Cardiomegaly with new left basilar opacity suspicious for acute infiltrate and/or atelec tasis and probable small left pleural effusion.
--- NOTE | 2018-09-01 22:20 | HP ---
HISTORY AND PHYSICAL DATE OF ADMISSION: 09/01/2018 PRESENTING COMPLAINT: Short of breath. HISTORY OF PRESENTING COMPLAINT: This is a pleasant 77-year-old patient with a rather extensive medical history. Chronic stable medical conditions include coronary artery disease with previous bypass, diabetes mellitus, type 2, essential hypertension, hyperlipidemia, primary osteoarthritis, peripheral artery disease, chronic kidney disease, stage III, from nephrosclerosis, BPH. The patient in January went down to [place] and was found to have elevated LFTs. Workup did show liver cancer. Exact type is unknown. Subsequently he had a bland embolization at [facility] in [place]. The patient has also had significant ascites and has had paracenteses every 2 weeks. The patient just returned to [place]. He had been getting more and more short of breath and he was sent into the ER. The patient did undergo paracentesis, but he still has been getting short of breath, especially with activity. Significant edema and abdominal distention are still present after paracentesis today. His is present at the bedside. The patient is supposed to follow up now with Oncology here in [facility]. REVIEW OF SYSTEMS: CONSTITUTIONAL: Tired. HEENT: None. RESPIRATORY: Short of breath. CARDIOVASCULAR: Edema present. GASTROINTESTINAL: Abdomen distended. GENITOURINARY: None. MUSCULOSKELETAL: Arthritic pain in joints. DERMATOLOGICAL: None. HEMATOLOGICAL: None. LYMPHATICS: None. PSYCHIATRY: None. NEUROLOGICAL: None. PAST MEDICAL HISTORY: 1. Congestive heart failure; EF 45% to 50%. 2. Coronary artery disease with coronary bypass. 3. Diabetes mellitus, type 2, on insulin. 4. Hypertension. 5. Hyperlipidemia. 6. Primary osteoarthritis. 7. Peripheral artery disease. 8. Chronic kidney disease, stage III. 9. BPH. 10.Troponin leak. 11.Liver cancer with planned embolization. 12.Recurrent paracentesis. PAST SURGICAL HISTORY: 1. Cholecystectomy. 2. Coronary artery bypass. 3. Wetzel embolization in liver. 4. Multiple paracenteses. 5. Coronary artery bypass in 2012. 6. Skin cancer removed from nose. 7. Umbilical hernia repair. 8. Bilateral cataracts removed. SOCIAL HISTORY: . Smoked for 23 years, stopped in 1981. Alcohol occasionally. FAMILY HISTORY: Father of renal failure. HOME MEDICATIONS: 1. Multivitamin 1 tablet p.o. daily. 2. Metoprolol 75 mg b.i.d. 3. NovoLog Mix 70/30 40 units subcutaneously before meals b.i.d. 4. Ferrous sulfate 325 units p.o. daily. 5. Welchol 1875 p.o. b.i.d. 6. Vitamin D3 2000 units p.o. daily. 7. Aspirin 81 mg p.o. daily. ALLERGIES: NONE. PHYSICAL EXAMINATION: Temperature 97.9, pulse 69, respiration 24, blood pressure 167/71, pulse ox 98% on room air. GENERAL APPEARANCE: Well built; BMI 37.1. Sitting at edge of the bed, short of breath. EYES: Pupils equal. Conjunctivae normal. HEENT: External appearance of nose and ears normal. Oral cavity normal. NECK: JVD unable to assess. Mass not palpable. RESPIRATORY: Effort increased. LUNGS: Decreased breath sounds. Basal crackles. CARDIOVASCULAR: Heart sounds muffled. Gross edema present. ABDOMEN: Distended, soft. Liver and spleen not palpable. LYMPHATIC: No lymph node palpable in neck or axillae. PSYCHIATRY: Alert and oriented x3. Mood and affect normal. NEUROLOGICAL: Pupils equal. Cranial nerves grossly intact. Power and sensation grossly intact. INVESTIGATIONS: White count 5, hemoglobin 10.5, platelets 138, potassium 5, BUN 25, creatinine 1.28. Accu-Cheks 63, 87. Albumin 3.4. Chest x-ray film, personally reviewed by me, shows cardiomegaly and left-sided pleural effusion. ASSESSMENT: 1. Acute on chronic congestive heart failure exacerbation from systolic and diastolic dysfunction, ejection fraction 45% to 50%, from underlying coronary artery disease. 2. Coronary artery disease with prior history of coronary artery bypass. 3. Diabetes mellitus, type 2, chronically on insulin, uncontrolled with hypoglycemia. 4. Essential hypertension. 5. Hyperlipidemia. 6. Primary osteoarthritis in multiple joints. 7. Peripheral artery disease. 8. Chronic kidney disease, stage III, probably from nephrosclerosis. 9. Benign prostatic hypertrophy. 10.Liver cancer with recent bland embolization at [facility] in [place]. 11.Recurrent ascites, symptomatic, status post paracentesis today for symptomatic relief. PLAN: The patient did have paracentesis today. Home medications are resumed. Patient's dose of insulin is going to be cut back. Accu-Cheks will be closely followed. Patient will be started on IV Lasix 80 mg subcutaneously q.12. Will keep a close eye on the renal function. Strict I and Os will be done. Consultation will be requested from Oncology, with whom the patient needs to get established. Also Cardiology. Care was discussed at length with the patient and his . Questions were answered. MMFAYL / IJN: [id number] /
[2018-09-01 22:42] LABS: Glucose,Whole Blood 117 mg/dL (75-99)
[2018-09-01] MEDS: INSULIN ASPART (NovoLOG) 100 UNIT/ML VIAL SQ SCH (23:53)
[2018-09-02 01:29] LABS: Glucose,Whole Blood 73 mg/dL (75-99)
[2018-09-02 06:49] LABS: Glucose,Whole Blood 144 mg/dL (75-99)
[2018-09-02] MEDS: INSULIN ASPART (NovoLOG) 100 UNIT/ML VIAL SQ SCH ×4 (06:55→20:57)
[2018-09-02] MEDS: FUROSEMIDE 10 MG/ML 10 ML VIAL IV SCH ×2 (07:26→21:22)
[2018-09-02] MEDS: INSULN ASP PRT/INSULIN ASPART 100 UNIT/ML 10 ML VIAL SQ SCH ×2 (07:27→17:38)
[2018-09-02] MEDS: ASPIRIN 81 MG PO SCH (07:27)
[2018-09-02] MEDS: CHOLECALCIFEROL 1,000 UNIT TAB PO SCH (07:27)
[2018-09-02] MEDS: FERROUS SULFATE 325 MG TAB PO SCH (07:27)
[2018-09-02] MEDS: COLESEVELAM 625 MG TAB PO SCH ×2 (07:30→17:38)
[2018-09-02] MEDS: METOPROLOL TARTRATE 25 MG TAB PO SCH ×2 (07:31→21:22)
--- NOTE | 2018-09-02 08:29 | US ---
Therapeutic paracentesis. DATE OF EXAM: 09/01/2018 CLINICAL HISTORY: Ascites The procedure was discussed with the patient. The risks, complications, benefits, and alternatives we re discussed and any questions were answered. Informed consent was obtained. The patient was placed s upine on the ultrasound table and prepped and draped in the usual sterile fashion. All elements of maximal barrier technique were utilized. Under ultrasound guidance, access into the right lower quadrant was obtained, via the paracentesis catheter system and direct ultrasound guidanc e. Approximately 5.3 liters of straw-colored fluid was removed. The patient was stable throughout the pr ocedure and remained stable upon discharge from Department of Radiology. IMPRESSION: Successful therapeutic paracentesis under ultrasound guidance.
[2018-09-02 11:09] LABS: Glucose,Whole Blood 134 mg/dL (75-99)
[2018-09-02] MEDS: MULTIVITAMINS, THERA 1 EACH TAB PO SCH (11:37)
[2018-09-02 12:09] LABS: Calcium 9.1 mg/dL (8.4-10.2); Potassium 4.7 mmol/L (3.5-5.1)
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
[2018-09-02] MEDS: SPIRONOLACTONE 25 MG TAB PO SCH ×2 (14:14→21:22)
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
[2018-09-02 17:08] LABS: Glucose,Whole Blood 127 mg/dL (75-99)
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
[2018-09-02 20:48] LABS: Glucose,Whole Blood 83 mg/dL (75-99)
[2018-09-02 22:09] VITALS: RESP 20
[2018-09-03 01:13] LABS: Glucose,Whole Blood 111 mg/dL (75-99)
--- NOTE | 2018-09-03 05:39 | PN ---
PROGRESS NOTE DATE OF SERVICE: 09/02/2018 PRESENTING COMPLAINT: Short of breath. INTERVAL HISTORY: This patient with liver cancer admitted with fluid overload and CHF exacerbation, on IV Lasix. Short of breath is slightly better. Still getting IV Lasix. Seen by oncology team. Patient will be referred to [facility]. REVIEW OF SYSTEMS: Done for constitutional, cardiovascular, GI, pulmonary; relevant findings as above. CURRENT MEDICATIONS: Current medications are reviewed that include IV Lasix. PHYSICAL EXAMINATION: On examination, temperature 97.6, pulse 67, respirations 16, blood pressure 138/71, pulse ox 98% on room air. GENERAL APPEARANCE: Sitting at the edge of bed, awake, slightly short of breath. EYES: Pupils equal. Conjunctivae normal. NECK: JVD unable to assess. Mass not palpable. RESPIRATORY: Effort increased. LUNGS: Decreased breath sounds. CARDIOVASCULAR: Heart sounds muffled. Edema present. ABDOMEN: Distended, soft. Liver and spleen not palpable. PSYCHIATRY: Alert and oriented x3. Mood and affect normal. INVESTIGATIONS: Potassium 4.7, BUN 25, creatinine 1.40. Chest x-ray film was reviewed. ASSESSMENT: 1. Acute on chronic congestive heart failure exacerbation from systolic and diastolic dysfunction, ejection fraction 40% to 45% from underlying coronary artery disease, slow to respond. 2. Coronary artery disease with prior history of coronary artery bypass. 3. Diabetes mellitus type 2, chronically on insulin, uncontrolled with hypoglycemia. 4. Essential hypertension. 5. Hyperlipidemia. 6. Primary osteoarthritis multiple joints. 7. Peripheral arterial disease. 8. Chronic kidney disease stage 3 from nephrosclerosis. 9. Benign prostatic hypertrophy. 10.Liver cancer with recent bland embolization [facility] in [place]. 11.Recurrent ascites, status post paracentesis. PLAN: To keep the patient on IV Lasix. Get a 2-D echocardiogram. Care was discussed with the patient and . We will also put the patient on fluid restriction of 1500 mL a day. Follow with Cardiology and Oncology. Expect the patient to be in the hospital for another 24 to 48 hours. MMODL / TINN: [id number] /
[2018-09-03 05:56] VITALS: BP 131/82; PULSE 60; TEMP 98.2
[2018-09-03 06:56] LABS: Glucose,Whole Blood 135 mg/dL (75-99)
[2018-09-03 07:33] LABS: Calcium 9.2 mg/dL (8.4-10.2); Potassium 4.7 mmol/L (3.5-5.1)
[2018-09-03] MEDS: INSULN ASP PRT/INSULIN ASPART 100 UNIT/ML 10 ML VIAL SQ SCH (08:33)
[2018-09-03] MEDS: METOPROLOL TARTRATE 25 MG TAB PO SCH (08:34)
[2018-09-03] MEDS: FERROUS SULFATE 325 MG TAB PO SCH (08:34)
[2018-09-03] MEDS: INSULIN ASPART (NovoLOG) 100 UNIT/ML VIAL SQ SCH ×2 (08:34→13:06)
[2018-09-03] MEDS: CHOLECALCIFEROL 1,000 UNIT TAB PO SCH (08:34)
[2018-09-03] MEDS: COLESEVELAM 625 MG TAB PO SCH (08:35)
[2018-09-03] MEDS: ASPIRIN 81 MG PO SCH (08:35)
[2018-09-03] MEDS: SPIRONOLACTONE 25 MG TAB PO SCH (08:35)
[2018-09-03] MEDS: FUROSEMIDE 10 MG/ML 10 ML VIAL IV SCH (08:38)
--- NOTE | 2018-09-03 10:52 | ECHOF ---
Referral Reason:sob, hx ischemic cm MEASUREMENTS -------- HEIGHT: 175.3 cm WEIGHT: 113.9 kg BP: RVIDd: 3.0 cm (< 3.3) IVSd: 1.2 cm (0.6 - 1.1) LVIDd: 5.0 cm (3.9 - 5.3) LVPWd: 1.4 cm (0.6 - 1.1) IVSs: 1.3 cm LVIDs: 3.7 cm LVPWs: 1.8 cm LAESV Index (A-L): 36.46 ml/m Ao Diam: 3.5 cm (2.0 - 3.7) AV Cusp: 2.0 cm (1.5 - 2.6) LA Diam: 4.9 cm (2.7 - 3.8) EPSS: 0.5 cm MV E Tano: 0.71 m/s MV DecT: 181 ms MV A Tano: 0.31 m/s MV E/A Ratio: 2.31 RAP: 5.00 mmHg RVSP: 25.27 mmHg MV EF SLOPE: 23.31 mm/s (70 - 150) MV EXCURSION: 1.21 cm (> 18.000) FINDINGS -------- Sinus rhythm. This was a techncally difficult study with suboptimal views, , Definity utilized for enhancement of i mages. The left ventricular size is normal. There is mild concentric left ventricular hypertrophy. Overa ll left ventricular systolic function is mild-moderately impaired with, an EF between 40 - 45 %. An terseptal Hypokinesis Inferior Hypokinesis The right ventricle is normal in size. The left atrium is markedly dilated. LA is severely dilated >40 ml/m2 The right atrial size is normal. 1.5mg of Definity was utilized for enhancement of images Possible PFO There is mild aortic valve sclerosis. There is no evidence of aortic regurgitation. Mild mitral annular calcification present. Moderate mitral regurgitation is present. Moderate tricuspid regurgitation present. There is mild pulmonary hypertension. The right ventric ular systolic pressure, as measured by Doppler, is 25.27mmHg. There is no pulmonic regurgitation present. The aortic root size is normal. There is no pericardial effusion. Large Pleural Effusion. CONCLUSIONS -------- 1. Sinus rhythm. 2. This was a techncally difficult study with suboptimal views, , Definity utilized for enhancement o f images. 3. The left ventricular size is normal. 4. There is mild concentric left ventricular hypertrophy. 5. Anterseptal Hypokinesis 6. Inferior Hypokinesis 7. The right ventricle is normal in size. 8. The left atrium is markedly dilated. 9. LA is severely dilated >40 ml/m2 10. The right atrial size is normal. 11. 1.5mg of Definity was utilized for enhancement of images 12. Possible PFO 13. There is mild aortic valve sclerosis. 14. There is no evidence of aortic regurgitation. 15. Mild mitral annular calcification present. 16. Moderate tricuspid regurgitation present. 17. There is mild pulmonary hypertension. 18. The right ventricular systolic pressure, as measured by Doppler, is 25.27mmHg. 19. There is no pulmonic regurgitation present. 20. The aortic root size is normal. 21. There is no pericardial effusion. 22. Large Pleural Effusion. CONSERVATION PLANNER: Michaela John RDCS
[2018-09-03 11:05] LABS: Glucose,Whole Blood 254 mg/dL (75-99)
[2018-09-03] MEDS: MULTIVITAMINS, THERA 1 EACH TAB PO SCH (13:06)
--- NOTE | 2018-09-03 13:25 | P.PN ---
Subjective This is a pleasant 77-year-old male past medical history significant for coronary artery disease status post bypass grafting, ischemic car diomyopathy, hypertension, diabetes mellitus and was recently diagnosed with liver cancer. He states he goes to [place] in the winter and while he was in [place] is where he was diagnosed since being diagnosed he has undergone anywhere from 8-10 paracentesis. He presented to the hospital yesterday afternoon with significant abdominal swelling and shortness of breath. He underwent a paracentesis with 5.3 L removed. He is seen and examined resting comfortably laying on his side flat in bed in no acute distress with his at the bedside. He states when he came into the hospital his stomach was very large and hard. This morning his stomach continues to be very protuberant but is rather soft. He complains of some shortness of breath and lower extremity edema and has been started on Lasix IV 80 mg twice a day since last night. He denies symptoms of chest discomfort, palpitations, nausea, vomiting or diaphoresis. Most recent echocardiogram obtained December 2017 reveals mildly impaired left ventricular systolic function with ejection fraction 45-50%, basal inferior, basal inferior septal, mid inferior and mid inferior septal LV wall motion hypokinesia, moderately dilated left atrium, mild aortic valve sclerosis, mild mitral regurgitation, mild tricuspid regurgitation and no evidence of pulmonary hypertension. 09/03/2018 He is seen and examined sitting up at the edge of the bed with his in the room. Overall his abdomen looks much and less swollen today. He states his b reathing has improved. No chest pain, dizziness or palpitations. Blood pressure 131/82 with a heart rate of 60. Laboratory data reviewed, potassium 4.7, creatinine 1.56. Currently maintained on Lasix 80 mg IV twice a day, Aldactone 25 mg twice a day, Lopressor 75 mg twice a day and aspirin 81 mg daily. GENERAL: This is a 77-year-old female in no apparent distress at the time of my examination. HEENT: Head is atraumatic, normocephalic. Pupils are equal, round. Sclerae anicteric. Conjunctivae are clear. Mucous membranes of the mouth are moist. Neck is supple. There is mild jugular venous distention with improvement since yesterday. No carotid bruit is heard. LUNGS: Clear to auscultation no wheezes, rales or rhonchi. No chest wall tenderness is noted on palpation or with deep breathing. Diminished bilaterally. HEART: Regular rate and rhythm with systolic ejection murmur at the base, no rubs or gallops. S1 and S2 heard. ABDOMEN: Ongoing swelling with overall improvement and decrease in swelling since yesterday. Non-tender and soft. Bowel sounds are heard. No organomegaly noted. EXTREMITIES: 2+ bilateral lower extremity edema and no calf tenderness noted. ASSESSMENT Acute ascites related to underlying liver CA requiring paracentesis with embolization in [place] recently History of chronic ischemic cardiomyopathy Coronary artery disease status post bypass grafting Hypertension Diabetes mellitus PLAN Transition to oral diuretics 40 mg BID. Continue aldactone at home, prescriptions have been sent to his preferred pharmacy. Repeat BMP in 3 days. Follow up with Dr. Jeffers in 3 days. Nurse Practitioner note has been reviewed, I agree with a documented findings and plan of care. Patient was seen and examined. Objective - Vital Signs Vital signs: Vital Signs Temp 98.2 F 09/03/18 05:00 Pulse 60 09/03/18 05:00 Resp 20 09/03/18 05:00 BP 131/82 09/03/18 05:00 Pulse Ox 94 L 09/03/18 05:00 Intake & Output 09/02/18 09/03/18 09/03/18 18:59 06:59 18:59 Intake Total 240 Output Total 1700 Balance -1460 Weight 107.5 kg 106.4 kg Intake: Oral 240 Output: Urine 1700 Other: Voiding Method Toilet Toilet Urinal Urinal # Voids 5 - Labs CBC & Chem 7: 09/01/18 10:05 09/03/18 06:46 Labs: Abnormal Lab Results - Last 24 Hours (Table) 09/02/18 09/02/18 09/02/18 Range/Units 11:08 11:41 17:07 Chloride 109 H (98-107) mmol/L BUN 25 H (9-20) mg/dL Creatinine 1.40 H (0.66-1.25) mg/dL Glucose (74-99) mg/dL POC Glucose (mg/dL) 134 H 127 H (75-99) mg/dL 09/03/18 09/03/18 09/03/18 Range/Units 01:10 06:46 06:54 Chloride 109 H (98-107) mmol/L BUN 33 H (9-20) mg/dL Creatinine 1.56 H (0.66-1.25) mg/dL Glucose 120 H (74-99) mg/dL POC Glucose (mg/dL) 111 H 135 H (75-99) mg/dL
[2018-09-03] MEDS ORDERED: FUROSEMIDE 40 MG TAB PO SCH (16:00)
--- NOTE | 2018-09-04 00:04 | DS ---
DISCHARGE SUMMARY DATE OF ADMISSION: 09/01/2018. DATE OF DISCHARGE: 09/05/2018. FINAL DIAGNOSES: 1. Acute on chronic congestive heart failure exacerbation from systolic and diastolic dysfunction, EF 40 to 45 percent from underlying coronary artery disease. 2. Prior history of coronary bypass. 3. Diabetes mellitus type 2, chronically on insulin, uncontrolled with hypoglycemia. 4. Essential hypertension. 5. Hyperlipidemia. 6. Primary osteoarthritis of multiple joints. 7. Peripheral artery disease. 8. Chronic kidney stage 3 from nephrosclerosis. 9. Benign prostatic hypertrophy. 10.Liver cancer with recent planned embolization at [facility] in [place]. 11.Recurrent ascites status post paracentesis. 12.Moderate tricuspid regurgitation, non-rheumatic. HOSPITAL COURSE: This patient who just came back to [place] from [place] where he had an embolization done for liver cancer, the patient was seen here by Dr. Fishman's team from Oncology. The patient now will be arranged to follow up at [facility] for further workup. The patient is found to be in congestive heart failure exacerbation, was given IV Lasix to which he responded rather well. A 2D echocardiogram done showed an EF of 40 to 45 percent. CONSULTATION: 1. Dr. Fishman from Oncology. 2. Dr. Spring from GI. 3. Dr. Christine Antoine from Cardiology. Today care was discussed at length with the patient and . Questions were answered. PHYSICAL EXAMINATION: Temperature 98.2, pulse 50, respirations 20, blood pressure 130/82, pulse ox 98% on room air. LUNGS: Improved air entry. Decreased edema. ABDOMEN: Less distended. INVESTIGATIONS: Potassium 4.7, BUN 33, creatinine 1.56. DISCHARGE MEDICATIONS: 1. Vitamin D3, 2000 units p.o. daily. 2. Welchol 1875 p.o. b.i.d. 3. Metoprolol 75 mg b.i.d. 4. Multivitamin 1 tablet p.o. daily. 5. Iron 325 p.o. daily. 6. Aspirin 81 mg p.o. daily. 7. Lasix 40 mg p.o. b.i.d. 8. NovoLog Mix 70/30, 32 units subcu with meals. 9. Aldactone 25 mg b.i.d. FOLLOWUP: 1. Follow up with Dr. Jeffers on 09/23/2018. 2. Follow up with Dr. Veras on 09/10/2018. 3. Follow Dr. Spring on 09/25/2018. 4. BMP in 3 days. 5. Outpatient paracentesis again scheduled for 09/10/2018. Discussion and discharge planning more than 35 minutes. MMODL / IJN: [id number] /
== END 2018-09-03 15:30 | disposition home or self-care (01) | DRG 291 ==
LOC: EC 08:58 → 3NMEDONC 11:30 → OBSVTOIN 09-03 08:18
PROVIDERS: ADMIT Hospitalist; ATTEND Hospitalist
PROC: 0W9G3ZZ Drainage of Peritoneal Cavity, Percutaneous Approach (ICD-10-PCS; principal; 2018-09-01)
DX: I13.0 Hypertensive heart and chronic kidney disease with heart failure and stage 1 through stage 4 chronic kidney disease, or unspecified chronic kidney disease (principal); I50.43 Acute on chronic combined systolic (congestive) and diastolic (congestive) heart failure; C22.0 Liver cell carcinoma; R18.8 Other ascites; E11.22 Type 2 diabetes mellitus with diabetic chronic kidney disease; E11.51 Type 2 diabetes mellitus with diabetic peripheral angiopathy without gangrene; E11.649 Type 2 diabetes mellitus with hypoglycemia without coma; E78.5 Hyperlipidemia, unspecified; I08.3 Combined rheumatic disorders of mitral, aortic and tricuspid valves; I25.10 Atherosclerotic heart disease of native coronary artery without angina pectoris; I25.5 Ischemic cardiomyopathy; K74.60 Unspecified cirrhosis of liver; N18.3 Chronic kidney disease, stage 3 (moderate); N40.0 Benign prostatic hyperplasia without lower urinary tract symptoms; Z79.4 Long term (current) use of insulin; Z79.82 Long term (current) use of aspirin; Z79.899 Other long term (current) drug therapy; Z85.828 Personal history of other malignant neoplasm of skin; Z87.891 Personal history of nicotine dependence; Z95.1 Presence of aortocoronary bypass graft; Z98.42 Cataract extraction status, left eye; Z98.41 Cataract extraction status, right eye; Z84.1 Family history of disorders of kidney and ureter; Z82.0 Family history of epilepsy and other diseases of the nervous system; M16.0 Bilateral primary osteoarthritis of hip; M19.012 Primary osteoarthritis, left shoulder; M19.011 Primary osteoarthritis, right shoulder; M19.042 Primary osteoarthritis, left hand; M19.041 Primary osteoarthritis, right hand
CPT/HCPCS: 36415; 49083; 71046; 80048; 80053; 82105; 83880; 85025; 85610; 93306; 99284

== ENCOUNTER 2018-09-10 12:19 | Day surgery (SDC) | payer MEDICARE ==
[2018-09-10 13:00] LABS: Mean Platelet Volume 7.5; Platelet Count 146 k/uL (150-450)
[2018-09-10 13:12] VITALS: RESP 16; TEMP 97.7
[2018-09-10 13:20] LABS: Glucose,Whole Blood 96 mg/dL (75-99)
[2018-09-10 13:27] LABS: Prothrombin Time 10.9 sec (9.0-12.0)
[2018-09-10] MEDS: ALBUMIN HUMAN 25% 50 ML in EMPTY BAG 1 BAG IVPB SCH ×3 (14:09→14:56)
[2018-09-10 14:59] VITALS: BP 152/79; PULSE 67
--- NOTE | 2018-09-10 16:15 | US ---
EXAMINATION TYPE: US paracentesis abd w/image DATE OF EXAM: 09/10/2018 COMPARISON: NONE HISTORY: Ascites. PROCEDURE: Maximal barrier technique was utilized. The skin overlying a suitable pocket of fluid was localized with ultrasound and the overlying skin was prepped and draped. Ultrasound was utilized with sterile technique. Lidocaine was used for local anesthesia and a skin jose made with a scalpel. Catheter was advanced under direct ultrasound guidance into a suitable pocket of fluid and approximately 5.7 liter s of serous fluid were removed. Catheter was withdrawn and hemostasis achieved. There is no immedia te complication; the patient is discharged in stable condition. IMPRESSION: STATUS POST ULTRASOUND GUIDED PARACENTESIS FOR PALLIATION OF ASCITES. THIS PROCEDURE WA S PERFORMED BY THE UNDERSIGNED.
== END 2018-09-10 14:55 | disposition home or self-care (01) ==
LOC: RADPROMAIN 12:19
PROVIDERS: ATTEND Internal Medicine
DX: R18.8 Other ascites (principal)
CPT/HCPCS: 82565; 85049; 85610; 36415; 49083; P9047

== ENCOUNTER → 2018-12-22 | Outpatient (CLI) | payer MEDICARE ==
[2018-12-22 13:37] LABS: Basophils # (A) 0.1 k/uL (0-0.2); Basophils % (A) 1 %; Eosinophils # (A) 0.4 k/uL (0-0.7); Eosinophils % (A) 8 %; HCT 39.3 % (39.0-53.0); HGB 13.1 gm/dL (13.0-17.5); Lymphocytes # (A) 0.6 k/uL (1.0-4.8); Lymphocytes % (A) 12 %; MCH 31.8 pg (25.0-35.0); MCHC 33.3 g/dL (31.0-37.0); MCV 95.7 fL (80.0-100.0); Mean Platelet Volume 8.5; Monocytes # (A) 0.4 k/uL (0-1.0); Monocytes % (A) 7 %; Neutrophils # (A) 3.7 k/uL (1.3-7.7); Neutrophils % (A) 70 %; Platelet Count 114 k/uL (150-450); RDW 15.7 % (11.5-15.5); WBC 5.2 k/uL (3.8-10.6)
[2018-12-22 13:44] LABS: Albumin 4.2 g/dL (3.5-5.0); Partial Thromboplastin Time 23.8 sec (22.0-30.0); Prothrombin Time 10.6 sec (9.0-12.0)
[2018-12-22 13:45] LABS: Calcium 10.2 mg/dL (8.4-10.2); Potassium 4.8 mmol/L (3.5-5.1); Total Bilirubin 1.4 mg/dL (0.2-1.3); Total Protein 9.1 g/dL (6.3-8.2)
--- NOTE | 2018-12-22 15:11 | CT ---
EXAMINATION TYPE: CT abdomen wo con DATE OF EXAM: 12/22/2018 HISTORY: liver cancer CT DLP: 965.5 mGycm. Automated Exposure Control for Dose Reduction was Utilized. TECHNIQUE: CT scan of the abdomen is performed without oral or IV contrast. COMPARISON: None at this institution. FINDINGS: Within the limitations of a non-contrast study, the following observations are made. LUNG BASES: There is partial visualization of small left pleural effusion with associated compressive atelectasis. Calcifications at level of aortic valve are partially imaged. There is right coronary a rtery calcifications noted. LIVER/GB: There is nonspecific 4.3 x 3.9 cm low dense lesion intersegment right hepatic dome on axial image 11 with some central calcification could reflect treated neoplasm. Subcentimeter hypodense are a left hepatic lobe anteriorly coronal image 24 could reflect second lesion. Cholecystectomy clips ar e present. Liver is small in size with slightly lobulated contour suggesting underlying cirrhosis. Ad jacent perihepatic ascites superior and right lateral aspects are identified. PANCREAS: No significant abnormality is seen. SPLEEN: Enlarged spleen at 14.2 cm axial image 20. Adjacent ascites ADRENALS: No significant abnormality is seen. KIDNEYS: Cortical thinning both kidneys consistent with product of chronic medical renal disease. BOWEL: Oral contrast only reaches level of proximal transverse colon. No suspicious small or large stella wel dilatation LYMPH NODES: No greater than 1cm abdominal lymph nodes are appreciated. OSSEOUS STRUCTURES: Advanced disc space narrowing L5-S1 level. Moderate to advanced multilevel spurri ng. Some narrowing and sclerosis bilateral sacroiliac joints. Correlate clinically to rule out ankylo sing spondylitis. OTHER: Small amount of fluid bilateral paracolic gutters, right greater than left IMPRESSION: 1. Cirrhosis with evidence of portal hypertension as there is splenomegaly and ascites. Nonspecific p artially calcified hepatic dome lesion could reflect treated neoplasm. Cannot exclude second smaller subcentimeter lesion on this study. Correlate clinically and with alpha-fetoprotein levels. Correlati on with old outside CT/MRI study would be beneficial.
== END | disposition home or self-care (01) ==
LOC: RADCTMAIN 12:38
PROVIDERS: ATTEND Family Medicine
DX: C22.0 Liver cell carcinoma (principal); K74.60 Unspecified cirrhosis of liver; R16.1 Splenomegaly, not elsewhere classified
CPT/HCPCS: 36415; 74150; 80053; 82105; 85025; 85610; 85730

== ENCOUNTER 2019-01-06 11:16 | Outpatient (CLI) | payer MEDICARE ==
[2019-01-06 12:40] LABS: INR 1.1 (<1.2); Prothrombin Time 11.2 sec (9.0-12.0)
[2019-01-06 12:49] LABS: Platelet Count 125 k/uL (150-450)
[2019-01-06 13:00] LABS: Glucose,Whole Blood 106 mg/dL (75-99)
[2019-01-06] MEDS: ALBUMIN HUMAN 25% 50 ML in EMPTY BAG 1 BAG IVPB SCH ×2 (13:55→14:11)
[2019-01-06 14:09] VITALS: TEMP 98.1
[2019-01-06 15:40] VITALS: RESP 16
[2019-01-06 15:43] VITALS: BP 138/68; PULSE 77
--- NOTE | 2019-01-06 15:43 | US ---
EXAMINATION TYPE: US paracentesis abd w/image DATE OF EXAM: 01/06/2019 COMPARISON: NONE HISTORY: Ascites. PROCEDURE: Maximal barrier technique was utilized. The skin overlying a suitable pocket of fluid was localized with ultrasound and the overlying skin was prepped and draped. Ultrasound was utilized with sterile technique. Lidocaine was used for local anesthesia and a skin jose made with a scalpel. Catheter was advanced under direct ultrasound guidance into a suitable pocket of fluid and approximately 3 liters of emilee fluid were removed. Catheter was withdrawn and hemostasis achieved. There is no immediate complication; the patient is discharged in stable condition. IMPRESSION: STATUS POST ULTRASOUND GUIDED PARACENTESIS FOR PALLIATION OF ASCITES. THIS PROCEDURE WA S PERFORMED BY THE UNDERSIGNED.
== END 2019-01-06 15:00 | disposition home or self-care (01) ==
LOC: RADPROMAIN 11:16
PROVIDERS: ATTEND Internal Medicine
DX: R18.8 Other ascites (principal); Z98.890 Other specified postprocedural states
CPT/HCPCS: 82565; 85049; 85610; 36415; 49083; P9047

== ENCOUNTER 2019-08-20 08:53 | Day surgery (SDC) | payer MEDICARE ==
[2019-08-20 09:27] LABS: Mean Platelet Volume 8.4; Platelet Count 108 k/uL (150-450)
[2019-08-20 09:32] LABS: Prothrombin Time 10.5 sec (9.0-12.0)
[2019-08-20 09:35] VITALS: TEMP 97.8
[2019-08-20 09:51] LABS: Glucose,Whole Blood 205 mg/dL (75-99)
[2019-08-20] MEDS: ALBUMIN HUMAN 25% 50 ML in EMPTY BAG 1 BAG IVPB SCH ×4 (10:45→11:32)
[2019-08-20 11:44] VITALS: BP 139/65; PULSE 64; RESP 18
--- NOTE | 2019-08-21 08:41 | US ---
Ultrasound-guided paracentesis. DATE OF EXAM: 08/20/2019 CLINICAL HISTORY: Ascites The procedure was discussed with the patient. The risks, complications, benefits, and alternatives we re discussed and any questions were answered. Informed consent was obtained. The patient was placed s upine on the ultrasound table and prepped and draped in the usual sterile fashion. All elements of maximal barrier technique were utilized. Under ultrasound guidance, access into the right lower quadrant was obtained, via the paracentesis catheter system and direct ultrasound guidanc e. Approximately 7.2 liters of straw-colored fluid was removed. The patient was stable throughout the pr ocedure and remained stable upon discharge from Department of Radiology. IMPRESSION: Successful paracentesis under ultrasound guidance.
== END 2019-08-20 11:56 | disposition home or self-care (01) ==
LOC: RADPROMAIN 08:53
PROVIDERS: ATTEND Family Medicine
DX: R18.0 Malignant ascites (principal); C22.0 Liver cell carcinoma
CPT/HCPCS: 85049; 85610; 36415; 49083; P9047

== ENCOUNTER → 2019-09-01 | Outpatient (CLI) | payer MEDICARE ==
[2019-09-01 11:00] LABS: Basophils # (A) 0.1 k/uL (0-0.2); Basophils % (A) 1 %; Eosinophils # (A) 0.4 k/uL (0-0.7); Eosinophils % (A) 5 %; HCT 40.2 % (39.0-53.0); HGB 13.2 gm/dL (13.0-17.5); Lymphocytes # (A) 0.6 k/uL (1.0-4.8); Lymphocytes % (A) 9 %; MCHC 32.8 g/dL (31.0-37.0); MCV 94.6 fL (80.0-100.0); Monocytes # (A) 0.5 k/uL (0-1.0); Monocytes % (A) 7 %; Neutrophils # (A) 5.6 k/uL (1.3-7.7); Neutrophils % (A) 76 %; Platelet Count 154 k/uL (150-450); RBC 4.25 m/uL (4.30-5.90); RDW 13.9 % (11.5-15.5); WBC 7.3 k/uL (3.8-10.6)
[2019-09-01 11:07] LABS: Albumin 3.6 g/dL (3.5-5.0); Calcium 9.5 mg/dL (8.4-10.2); Potassium 4.3 mmol/L (3.5-5.1); Total Bilirubin 1.3 mg/dL (0.2-1.3)
[2019-09-01 11:14] LABS: Partial Thromboplastin Time 23.8 sec (22.0-30.0); Prothrombin Time 10.3 sec (9.0-12.0)
--- NOTE | 2019-09-01 12:35 | CT ---
EXAMINATION TYPE: CT chest abdomen w con, CT abdomen wo con DATE OF EXAM: 09/01/2019 COMPARISON: NONE HISTORY: 78-year-old male liver mass, ascites, CHF TECHNIQUE: Contiguous axial scanning of the abdomen initially without IV contrast followed by scannin g of the chest and abdomen with 80 ml Isovue 300 IV contrast. Delayed images through the kidneys and coronal/sagittal reconstructions performed. CT DLP: 2144.7 (accession [id number]), 904.3 (accession [id number]) mGycm Automated exposure control for dose reduction was used. FINDINGS: CHEST: Heart borderline enlarged without pericardial effusion. Median sternotomy wires are present with post -CABG changes. Ascending aorta mildly aneurysmal at 4.2 cm. Mild atherosclerotic arch calcifications with convention al branching anatomy. Ectatic upper descending thoracic aorta at 3.1 cm. Large caliber to the main right and the pulmonary arteries measuring up to 3.3 cm suggesting underlyi ng pulmonary arterial hypertension. Borderline enlarged mediastinal lymph node measuring up to 1 cm in the precarinal region. A number of additional nonenlarged mediastinal lymph nodes are present. Probably reactive/post inflammatory. Mod erate bilateral gynecomastia and mild generalized anasarca change. Moderate left pleural effusion, increased from 12/22/2018. Adjacent dependent atelectasis in the basila r left lower lobe. Some ground glass and streaky densities within portions of the remainder of the left lung, likely ate lectasis. Mild diffuse bronchial wall thickening is noted, likely from fluid overload state. ABDOMEN: Right hepatic dome mass measures 4.0 x 4.2 cm versus 4.0 x 4.0 cm, previously. Some increasing dystro phic calcifications are present within. Arterial phase imaging suggests some subtle hypervascularity. The delayed scan suggests some possible accelerated washout, for example, refer to axial images 106 and 12, respectively. Left total mass now contains new calcifications measuring 4.9 cm versus 4.3 cm, previously. There is overall cirrhotic morphology of liver. Portal venous system is patent. No biliary ductal dil atation. Tiny diverticulum of the second portion of the duodenum projecting towards the pancreatic he ad region. Gallbladder surgically absent. Borderline and mildly enlarged lymph nodes in the upper abdomen in the christianne hepatic, peripancreatic, portacaval regions measure up to 1.5 cm, likely reactive and not significantly changed from prior. Nodularity in the gastrohepatic ligament region and extending to the distal esophagus corresponds to collateral vessels and gastroesophageal varices. Adrenal glands, kidneys, and pancreas appear within normal limits. Spleen enlarged at 15.4 cm. There is moderate abdominal ascites, increased from prior exam. Moderate atrophy and scattered calcifications throughout the abdominal aorta and visualized common il iac arteries with infrarenal AAA measuring 3.5 cm, unchanged. The most delayed scan shows no excretion of contrast from the kidneys. Additionally correlated with p atient's kidney function studies. No dilated small bowel or free air. Scattered mild stool burden. Normal appendix. Pelvis not imaged. BONES: Degenerative changes at the SI joints and multilevel disc generative disc disease and facet arthropat hy throughout the lumbar spine-within the lower thoracic spine. Grade 1 retrolisthesis at L2-L3. IMPRESSION: 1. REDEMONSTRATED CIRRHOSIS AND PORTAL VENOUS HYPERTENSION (SPLENOMEGALY AT 15.4 CM, INCREASING MODER ATE ABDOMINAL ASCITES, SCATTERED COLLATERAL VESSELS, AND LOWER GASTROESOPHAGEAL VARICES). 2. INCREASING CALCIFICATIONS WITHIN THE RIGHT HEPATIC DOME MASS AND NEW CALCIFICATIONS WITHIN THE LEF T HEPATIC DOME MASS. QUERY ANY INTERVAL TREATMENT. RIGHT HEPATIC DOME MASS MEASURES STABLE TO MINIMAL LY LARGER AT 4.2 X 4.0 CM (VERSUS 4.0 X 4.0 CM, PREVIOUSLY). THE LEFT HEPATIC DOME MASS MEASURES SLIG HTLY LARGER AT 4.9 CM (VERSUS 4.3 CM, PREVIOUSLY). 3. MILD GENERALIZED ANASARCA CHANGE, BORDERLINE CARDIOMEGALY, PULMONARY ARTERIAL HYPERTENSION, INCREASING MODERATE LEFT PLEURAL EFFUSION WITH ADJACEN T ATELECTASIS. CORRELATE FOR FLUID OVERLOAD STATE. 4. ASCENDING AORTIC ANEURYSM 4.2 CM AN INFRARENAL AAA AT 3.5 CM. 5. SCATTERED BORDERLINE TO MILDLY ENLARGED UPPER ABDOMINAL LYMPH NODES, UNCHANGED FROM 12/22/2018, LIKE LY REACTIVE.
== END ==
LOC: RADCTMAIN 09:59
DX: R16.0 Hepatomegaly, not elsewhere classified (principal); I50.9 Heart failure, unspecified; I85.10 Secondary esophageal varices without bleeding; K74.60 Unspecified cirrhosis of liver; K76.6 Portal hypertension; R16.2 Hepatomegaly with splenomegaly, not elsewhere classified; K76.89 Other specified diseases of liver; J90 Pleural effusion, not elsewhere classified; I27.21 Secondary pulmonary arterial hypertension; R60.1 Generalized edema; J98.11 Atelectasis; I71.4 Abdominal aortic aneurysm, without rupture; R59.9 Enlarged lymph nodes, unspecified; I71.2 Thoracic aortic aneurysm, without rupture
CPT/HCPCS: 80053; 85025; 85610; 85730; 82105; 71260; 74160; 74150; 36415; Q9967

== ENCOUNTER 2019-09-08 07:46 | Day surgery (SDC) | payer MEDICARE ==
[2019-09-08 08:38] LABS: Mean Platelet Volume 8.1; Platelet Count 108 k/uL (150-450)
[2019-09-08 08:42] LABS: INR 1.1 (<1.2); Prothrombin Time 10.9 sec (9.0-12.0)
[2019-09-08 08:46] VITALS: TEMP 97.6
[2019-09-08 10:00] VITALS: RESP 16
[2019-09-08 10:49] VITALS: BP 126/81; PULSE 62
--- NOTE | 2019-09-08 14:45 | US ---
EXAMINATION TYPE: US paracentesis abd w/image DATE OF EXAM: 09/08/2019 COMPARISON: NONE HISTORY: Ascites. PROCEDURE: Maximal barrier technique was utilized. The skin overlying a suitable pocket of fluid was localized with ultrasound and the overlying skin was prepped and draped. Ultrasound was utilized with sterile technique. Lidocaine was used for local anesthesia and a skin jose made with a scalpel. Catheter was advanced under direct ultrasound guidance into a suitable pocket of fluid and approximately 6.3 liter s of serous fluid were removed. Catheter was withdrawn and hemostasis achieved. There is no immedia te complication; the patient is discharged in stable condition. IMPRESSION: STATUS POST ULTRASOUND GUIDED PARACENTESIS FOR PALLIATION OF ASCITES. THIS PROCEDURE WA S PERFORMED BY THE UNDERSIGNED.
== END 2019-09-08 10:40 | disposition home or self-care (01) ==
LOC: RADPROMAIN 07:46
PROVIDERS: ATTEND Family Medicine
DX: C22.0 Liver cell carcinoma (principal); R18.0 Malignant ascites; K74.60 Unspecified cirrhosis of liver
CPT/HCPCS: 36415; 49083; 82947; 85049; 85610

== ENCOUNTER → 2019-09-20 | Outpatient (CLI) | payer MEDICARE | END | disposition home or self-care (01) | LOC: LABWHC1 09:40 | PROVIDERS: ATTEND Family Medicine | DX: U07.1 COVID-19 (principal) | CPT/HCPCS: 87635 ==

== ENCOUNTER 2019-09-22 07:59 | Day surgery (SDC) | payer MEDICARE ==
[2019-09-22 08:32] VITALS: TEMP 98.2
[2019-09-22 08:40] LABS: Mean Platelet Volume 8.1; Platelet Count 108 k/uL (150-450)
[2019-09-22 08:47] LABS: INR 1.1 (<1.2); Prothrombin Time 10.8 sec (9.0-12.0)
[2019-09-22 10:55] VITALS: RESP 18
[2019-09-22 11:01] VITALS: BP 125/66; PULSE 66
--- NOTE | 2019-09-22 11:29 | US ---
EXAMINATION TYPE: US paracentesis abd w/image DATE OF EXAM: 09/22/2019 COMPARISON: NONE HISTORY: Ascites. PROCEDURE: Maximal barrier technique was utilized. The skin overlying a suitable pocket of fluid was localized with ultrasound and the overlying skin was prepped and draped. Ultrasound was utilized with sterile technique. Lidocaine was used for local anesthesia and a skin jose made with a scalpel. Catheter was advanced under direct ultrasound guidance into a suitable pocket of fluid and approximately 6.9 liter s of serous fluid were removed. Catheter was withdrawn and hemostasis achieved. There is no immedia te complication; the patient is discharged in stable condition. IMPRESSION: STATUS POST ULTRASOUND GUIDED PARACENTESIS FOR PALLIATION OF ASCITES. THIS PROCEDURE WA S PERFORMED BY THE UNDERSIGNED.
== END 2019-09-22 11:15 | disposition home or self-care (01) ==
LOC: RADPROMAIN 07:59
PROVIDERS: ATTEND Family Medicine
DX: R18.0 Malignant ascites (principal); C22.0 Liver cell carcinoma; K74.60 Unspecified cirrhosis of liver
CPT/HCPCS: 36415; 49083; 82947; 85049; 85610

== ENCOUNTER → 2019-09-30 | Outpatient (CLI) | payer MEDICARE | END | disposition home or self-care (01) | LOC: LABWHC1 09:41 | PROVIDERS: ATTEND Family Medicine | DX: Z11.59 Encounter for screening for other viral diseases (principal) | CPT/HCPCS: 87635 ==

== ENCOUNTER 2019-10-02 08:39 | Day surgery (SDC) | payer MEDICARE ==
[2019-10-02 09:26] VITALS: RESP 20; TEMP 97.6
[2019-10-02 09:42] LABS: Mean Platelet Volume 8.2; Platelet Count 117 k/uL (150-450)
[2019-10-02 09:47] LABS: Prothrombin Time 10.7 sec (9.0-12.0)
[2019-10-02 11:12] VITALS: BP 132/64; PULSE 64
--- NOTE | 2019-10-05 09:13 | US ---
EXAMINATION TYPE: US paracentesis abd w/image DATE OF EXAM: 10/02/2019 COMPARISON: NONE HISTORY: Ascites. PROCEDURE: Maximal barrier technique was utilized. The skin overlying a suitable pocket of fluid was localized with ultrasound and the overlying skin was prepped and draped. Ultrasound was utilized with sterile technique. Lidocaine was used for local anesthesia and a skin jose made with a scalpel. Catheter was advanced under direct ultrasound guidance into a suitable pocket of fluid and approximately 5.1 liter s of serous fluid were removed. Catheter was withdrawn and hemostasis achieved. There is no immedia te complication; the patient is discharged in stable condition. IMPRESSION: STATUS POST ULTRASOUND GUIDED PARACENTESIS FOR PALLIATION OF ASCITES. THIS PROCEDURE WA S PERFORMED BY THE UNDERSIGNED.
== END 2019-10-02 11:25 | disposition home or self-care (01) ==
LOC: RADPROMAIN 08:39
PROVIDERS: ATTEND Family Medicine
DX: R18.8 Other ascites (principal); C22.0 Liver cell carcinoma; K74.60 Unspecified cirrhosis of liver
CPT/HCPCS: 36415; 49083; 85049; 85610

== ENCOUNTER → 2019-10-09 | Outpatient (CLI) | payer MEDICARE | END | disposition home or self-care (01) | LOC: LABWHC1 09:10 | PROVIDERS: ATTEND Family Medicine | DX: Z11.59 Encounter for screening for other viral diseases (principal) | CPT/HCPCS: 87635 ==

== ENCOUNTER 2019-10-14 11:52 | Day surgery (SDC) | payer MEDICARE ==
[2019-10-14 13:27] LABS: Mean Platelet Volume 8.7; Platelet Count 116 k/uL (150-450)
[2019-10-14 13:36] VITALS: TEMP 97.8
[2019-10-14 13:36] LABS: INR 1.1 (<1.2); Prothrombin Time 10.9 sec (9.0-12.0)
[2019-10-14 15:35] VITALS: BP 131/67; PULSE 70; RESP 16
--- NOTE | 2019-10-16 07:57 | US ---
Ultrasound-guided paracentesis. DATE OF EXAM: 10/14/2019 CLINICAL HISTORY: Ascites The procedure was discussed with the patient. The risks, complications, benefits, and alternatives we re discussed and any questions were answered. Informed consent was obtained. The patient was placed s upine on the ultrasound table and prepped and draped in the usual sterile fashion. All elements of maximal barrier technique were utilized. Under ultrasound guidance, access into the right lower quadrant was obtained, via the paracentesis catheter system and direct ultrasound guidanc e. Approximately 4.7 liters of straw-colored fluid was removed. The patient was stable throughout the pr ocedure and remained stable upon discharge from Department of Radiology. IMPRESSION: Successful paracentesis under ultrasound guidance.
== END 2019-10-14 14:55 | disposition home or self-care (01) ==
LOC: RADPROMAIN 11:52
PROVIDERS: ATTEND Family Medicine
DX: C22.0 Liver cell carcinoma (principal); R18.0 Malignant ascites; K70.30 Alcoholic cirrhosis of liver without ascites
CPT/HCPCS: 36415; 49083; 82947; 85049; 85610

== ENCOUNTER 2019-10-28 11:57 | Day surgery (SDC) | payer MEDICARE ==
[2019-10-28 12:38] VITALS: TEMP 97.8
[2019-10-28 12:50] LABS: Mean Platelet Volume 7.8; Platelet Count 122 k/uL (150-450)
[2019-10-28 12:56] LABS: Prothrombin Time 10.5 sec (9.0-12.0)
--- NOTE | 2019-10-28 14:54 | US ---
EXAMINATION TYPE: US paracentesis abd w/image DATE OF EXAM: 10/28/2019 COMPARISON: NONE HISTORY: Ascites. PROCEDURE: Maximal barrier technique was utilized. The skin overlying a suitable pocket of fluid was localized with ultrasound and the overlying skin was prepped and draped. Ultrasound was utilized with sterile technique. Lidocaine was used for local anesthesia and a skin jose made with a scalpel. Catheter was advanced under direct ultrasound guidance into a suitable pocket of fluid and approximately 8.1 liter s of serous sanguinous fluid were removed. Catheter was withdrawn and hemostasis achieved. There is no immediate complication; the patient is discharged in stable condition. IMPRESSION: STATUS POST ULTRASOUND GUIDED PARACENTESIS FOR PALLIATION OF ASCITES. THIS PROCEDURE WA S PERFORMED BY THE UNDERSIGNED.
[2019-10-28 15:17] VITALS: BP 144/72; PULSE 74; RESP 20
== END 2019-10-28 15:05 | disposition home or self-care (01) ==
LOC: RADPROMAIN 11:57
PROVIDERS: ATTEND Family Medicine
DX: C22.0 Liver cell carcinoma (principal); R18.0 Malignant ascites
CPT/HCPCS: 36415; 49083; 82947; 85049; 85610

== ENCOUNTER 2019-11-06 09:00 | Day surgery (SDC) | payer MEDICARE ==
[2019-11-06 09:30] LABS: Mean Platelet Volume 8.4; Platelet Count 108 k/uL (150-450)
[2019-11-06 09:34] LABS: Prothrombin Time 10.8 sec (9.0-12.0)
[2019-11-06 09:39] VITALS: TEMP 98.1
[2019-11-06 10:49] VITALS: BP 134/78; PULSE 73; RESP 18
--- NOTE | 2019-11-06 12:13 | US ---
EXAMINATION TYPE: US paracentesis abd w/image DATE OF EXAM: 11/06/2019 COMPARISON: NONE HISTORY: Ascites. PROCEDURE: Maximal barrier technique was utilized. The skin overlying a suitable pocket of fluid was localized with ultrasound and the overlying skin was prepped and draped. Ultrasound was utilized with sterile technique. Lidocaine was used for local anesthesia and a skin jose made with a scalpel. Catheter was advanced under direct ultrasound guidance into a suitable pocket of fluid and approximately 6.3 liter s of cloudy serous sanguinous fluid were removed. Catheter was withdrawn and hemostasis achieved. T here is no immediate complication; the patient is discharged in stable condition. IMPRESSION: STATUS POST ULTRASOUND GUIDED PARACENTESIS FOR PALLIATION OF ASCITES. THIS PROCEDURE WA S PERFORMED BY THE UNDERSIGNED.
== END 2019-11-06 11:40 | disposition home or self-care (01) ==
LOC: RADPROMAIN 09:00
PROVIDERS: ATTEND Family Medicine
DX: C22.0 Liver cell carcinoma (principal); R18.0 Malignant ascites; K74.60 Unspecified cirrhosis of liver
CPT/HCPCS: 36415; 49083; 82565; 82947; 85049; 85610

== ENCOUNTER 2019-11-18 11:55 | Day surgery (SDC) | payer MEDICARE ==
[2019-11-18 12:26] VITALS: TEMP 97.9
[2019-11-18 12:34] LABS: Mean Platelet Volume 9.1; Platelet Count 106 k/uL (150-450)
[2019-11-18 12:47] LABS: Prothrombin Time 10.3 sec (9.0-12.0)
[2019-11-18 13:57] VITALS: RESP 18
[2019-11-18 14:37] VITALS: BP 151/80; PULSE 62
--- NOTE | 2019-11-18 15:34 | US ---
Ultrasound-guided paracentesis. DATE OF EXAM: 11/18/2019 CLINICAL HISTORY: Ascites The procedure was discussed with the patient. The risks, complications, benefits, and alternatives we re discussed and any questions were answered. Informed consent was obtained. The patient was placed s upine on the ultrasound table and prepped and draped in the usual sterile fashion. All elements of maximal barrier technique were utilized. Under ultrasound guidance, access into the right lower quadrant was obtained, via the paracentesis catheter system and direct ultrasound guidanc e. Approximately 7.2 liters of straw-colored fluid was removed. The patient was stable throughout the pr ocedure and remained stable upon discharge from Department of Radiology. IMPRESSION: Successful paracentesis under ultrasound guidance.
== END 2019-11-18 14:45 | disposition home or self-care (01) ==
LOC: RADPROMAIN 11:55
PROVIDERS: ATTEND Family Medicine
DX: C22.0 Liver cell carcinoma (principal); R18.0 Malignant ascites; K74.60 Unspecified cirrhosis of liver
CPT/HCPCS: 36415; 49083; 85049; 85610

== ENCOUNTER 2019-11-27 11:59 | Day surgery (SDC) | payer MEDICARE ==
[2019-11-27 12:59] LABS: Mean Platelet Volume 8.4
[2019-11-27 13:07] LABS: INR 1.1 (<1.2); Prothrombin Time 10.9 sec (9.0-12.0)
[2019-11-27 13:09] LABS: Platelet Count 95 k/uL (150-450)
[2019-11-27 14:14] VITALS: RESP 16; TEMP 98
[2019-11-27 14:49] VITALS: BP 108/55; PULSE 67
--- NOTE | 2019-11-27 17:01 | US ---
EXAMINATION TYPE: US paracentesis abd w/image DATE OF EXAM: 11/27/2019 COMPARISON: NONE HISTORY: Ascites. PROCEDURE: Maximal barrier technique was utilized. The skin overlying a suitable pocket of fluid was localized with ultrasound and the overlying skin was prepped and draped. Ultrasound was utilized with sterile technique. Lidocaine was used for local anesthesia and a skin jose made with a scalpel. Catheter was advanced under direct ultrasound guidance into a suitable pocket of fluid and approximately 4.5 liter s of serous fluid were removed. Catheter was withdrawn and hemostasis achieved. There is no immedia te complication; the patient is discharged in stable condition. IMPRESSION: STATUS POST ULTRASOUND GUIDED PARACENTESIS FOR PALLIATION OF ASCITES. THIS PROCEDURE WA S PERFORMED BY THE UNDERSIGNED.
== END 2019-11-27 15:00 | disposition home or self-care (01) ==
LOC: RADPROMAIN 11:59
PROVIDERS: ATTEND Family Medicine
DX: C22.0 Liver cell carcinoma (principal); R18.0 Malignant ascites; K74.60 Unspecified cirrhosis of liver
CPT/HCPCS: 36415; 49083; 82565; 82947; 85049; 85610

== ENCOUNTER 2019-12-04 11:41 | Day surgery (SDC) | payer MEDICARE ==
[2019-12-04 12:46] VITALS: TEMP 98.1
[2019-12-04 13:08] LABS: Mean Platelet Volume 8.7; Platelet Count 111 k/uL (150-450)
[2019-12-04 13:19] LABS: Prothrombin Time 10.1 sec (9.0-12.0)
[2019-12-04 14:33] VITALS: BP 129/70; PULSE 60; RESP 16
--- NOTE | 2019-12-08 10:38 | US ---
EXAMINATION TYPE: US paracentesis abd w/image DATE OF EXAM: 12/04/2019 CLINICAL HISTORY: Malignant ascites. Liver cell carcinoma. The procedure was discussed with the patient. The risks, complications, benefits, and alternatives we re discussed and any questions were answered. Informed consent was obtained. Preprocedure imaging demonstrated a large volume right ascites and trace left ascites. The patient wa s placed supine on the ultrasound table and prepped and draped in the usual sterile fashion. All elements of maximal barrier technique were utilized. Under ultrasound guidance, access into the right lower quadrant was obtained with a 5 Nigerian one-step centesis catheter. Approximately 4.5 liters of clear serous fluid was removed. Catheter was removed and sterile bandage was applied. The patient was stable throughout the procedure and remained stable upon discharge from Department of Radiology. IMPRESSION: Successful ultrasound-guided paracentesis, with removal of 4.5 liters of clear serous fluid.
== END 2019-12-04 14:45 | disposition home or self-care (01) ==
LOC: RADPROMAIN 11:41
PROVIDERS: ATTEND Family Medicine
DX: K70.30 Alcoholic cirrhosis of liver without ascites (principal); R18.0 Malignant ascites; C22.0 Liver cell carcinoma
CPT/HCPCS: 36415; 49083; 85049; 85610

== ENCOUNTER 2019-12-14 08:39 | Day surgery (SDC) | payer MEDICARE ==
[2019-12-14 09:11] VITALS: TEMP 97.6
[2019-12-14 09:34] LABS: Mean Platelet Volume 9.2; Platelet Count 102 k/uL (150-450)
[2019-12-14 09:41] LABS: Prothrombin Time 10.6 sec (9.0-12.0)
[2019-12-14 10:17] VITALS: RESP 16
[2019-12-14 10:57] VITALS: BP 110/79; PULSE 61
--- NOTE | 2019-12-14 12:39 | US ---
Ultrasound-guided paracentesis. DATE OF EXAM: 12/14/2019 CLINICAL HISTORY: Ascites The procedure was discussed with the patient. The risks, complications, benefits, and alternatives we re discussed and any questions were answered. Informed consent was obtained. The patient was placed s upine on the ultrasound table and prepped and draped in the usual sterile fashion. All elements of maximal barrier technique were utilized. Under ultrasound guidance, access into the right lower quadrant was obtained, via the paracentesis catheter system and direct ultrasound guidanc e. Approximately 5.1 liters of straw-colored fluid was removed. The patient was stable throughout the pr ocedure and remained stable upon discharge from Department of Radiology. IMPRESSION: Successful paracentesis under ultrasound guidance.
== END 2019-12-14 11:09 | disposition home or self-care (01) ==
LOC: RADPROMAIN 08:39
PROVIDERS: ATTEND Family Medicine
DX: C22.0 Liver cell carcinoma (principal); R18.0 Malignant ascites; K74.60 Unspecified cirrhosis of liver
CPT/HCPCS: 36415; 49083; 82947; 85049; 85610

== ENCOUNTER 2019-12-24 11:52 | Day surgery (SDC) | payer MEDICARE ==
[2019-12-24 13:25] VITALS: RESP 18; TEMP 97.1
[2019-12-24 13:26] LABS: Mean Platelet Volume 8.1
[2019-12-24 13:30] LABS: Platelet Count 91 k/uL (150-450)
[2019-12-24 13:34] LABS: Prothrombin Time 10.3 sec (9.0-12.0)
[2019-12-24 14:03] VITALS: BP 131/72
[2019-12-24 15:08] VITALS: PULSE 63
[2019-12-24 15:29] LABS: Basophils % (A) 1 %; Eosinophils # (A) 0.4 k/uL (0-0.7); Eosinophils % (A) 7 %; HCT 39.7 % (39.0-53.0); HGB 12.9 gm/dL (13.0-17.5); Lymphocytes # (A) 0.5 k/uL (1.0-4.8); Lymphocytes % (A) 9 %; MCH 31.9 pg (25.0-35.0); MCHC 32.4 g/dL (31.0-37.0); MCV 98.5 fL (80.0-100.0); Monocytes # (A) 0.6 k/uL (0-1.0); Monocytes % (A) 11 %; Neutrophils # (A) 3.6 k/uL (1.3-7.7); Neutrophils % (A) 69 %; RBC 4.03 m/uL (4.30-5.90); RDW 13.7 % (11.5-15.5); WBC 5.2 k/uL (3.8-10.6)
[2019-12-24 15:43] LABS: Albumin 3.1 g/dL (3.5-5.0); Potassium 5.4 mmol/L (3.5-5.1); Total Bilirubin 1.5 mg/dL (0.2-1.3)
[2019-12-24 15:51] LABS: Partial Thromboplastin Time 22.1 sec (22.0-30.0)
--- NOTE | 2019-12-24 15:52 | US ---
Ultrasound-guided paracentesis. DATE OF EXAM: 12/24/2019 CLINICAL HISTORY: Ascites The procedure was discussed with the patient. The risks, complications, benefits, and alternatives we re discussed and any questions were answered. Informed consent was obtained. The patient was placed s upine on the ultrasound table and prepped and draped in the usual sterile fashion. All elements of maximal barrier technique were utilized. Under ultrasound guidance, access into the right lower quadrant was obtained, via the paracentesis catheter system and direct ultrasound guidanc e. Approximately 6.3 liters of straw-colored fluid was removed. The patient was stable throughout the pr ocedure and remained stable upon discharge from Department of Radiology. IMPRESSION: Successful paracentesis under ultrasound guidance.
[2019-12-24 15:57] LABS: Platelet Count 92 k/uL (150-450)
== END 2019-12-24 15:00 | disposition home or self-care (01) ==
LOC: RADPROMAIN 11:52
PROVIDERS: ATTEND Family Medicine
DX: C22.0 Liver cell carcinoma (principal); R18.0 Malignant ascites; K74.60 Unspecified cirrhosis of liver
CPT/HCPCS: 36415; 49083; 80053; 82105; 84520; 85025; 85049; 85610; 85730

== ENCOUNTER → 2019-12-24 | Outpatient (CLI) | payer MEDICARE ==
[~2019-12-24] MED LIST: SODIUM CHLORIDE 0.9% 500 ML 500 ML IV ONE
[2019-12-24 15:49] VITALS: BP 131/59; PULSE 62; RESP 18
--- NOTE | 2019-12-25 07:33 | CT ---
EXAMINATION TYPE: CT abdomen w con DATE OF EXAM: 12/24/2019 COMPARISON: CT abdomen September 01, 2019 and older studies. HISTORY: Liver CA CT DLP: 2561.6 mGycm, Automated Exposure Control for Dose Reduction was Utilized. CONTRAST: CT scan of the abdomen is performed without oral but with IV Contrast, patient injected with 80 mL of Isovue 300. FINDINGS: LUNG BASES: Stable small left pleural effusion and associated compressive atelectasis. Partial visual ization of overlying sternal wires. Coronary artery calcification redemonstrated LIVER/GB: Persistent 4.0 cm calcified lesion anterior right hepatic dome axial image 12 series 6 and 4.0 cm calcified left lateral segment hepatic lobe lesion axial image 15 consistent with areas of silvana ated neoplasm. Best seen on delayed postcontrast images is rim enhancement with central washout along the posterior aspect of the more superior lesion measuring 4.6 x 4.6 cm on axial image 16 r series 1 1. Interval progression of this lesion felt present. Slightly suboptimal study as noncontrast imaging performed. No definitive new enhancing lesions with washout. Persistent somewhat small size liver with small amount of surrounding ascites decreased from most recent prior. Cholecystectomy clips. PANCREAS: Mild generalized fat replaced atrophy redemonstrated. SPLEEN: Persistent splenomegaly at 15.4 cm long axis axial image 25. Trace periSplenic ascites improv ed from most recent prior. ADRENALS: No significant abnormality is seen. KIDNEYS: Cortical thinning in both kidneys redemonstrated. BOWEL: Stomach poorly distended and thus suboptimally evaluated. No suspicious small or large bowel d ilatation. LYMPH NODES: No greater than 1cm abdominal lymph nodes are appreciated. OSSEOUS STRUCTURES: Multilevel moderate to severe spurring in the thoracolumbar spine. Vacuum disc ph enomenon and disc space narrowing in the lower lumbar levels. OTHER: Moderate calcified plaque of the aorta extends into branch vessels. Ectasia with 3.3 cm aneury sm AP diameter axial image 46 of the infrarenal abdominal aorta is again seen. Small amount of ascite s in the paracolic gutters and trace fluid causing fat stranding throughout the posterior peritoneal cavity. Partial visualization of overlying vertical scar in the midline of the lower abdomen. IMPRESSION: 1. Suspect 2 treated hepatic lesions with suspected active recurrence of the more superior lesion whi ch shows area of rim enhancement and washout. No new enhancing lesions are evident.
== END | disposition home or self-care (01) ==
LOC: RADCTMAIN 14:47
PROVIDERS: ATTEND Radiology Diagnostic Radiology
DX: R16.0 Hepatomegaly, not elsewhere classified (principal); R18.8 Other ascites; I50.9 Heart failure, unspecified; C22.0 Liver cell carcinoma
CPT/HCPCS: 74160; 36415; Q9967

== ENCOUNTER 2020-01-26 11:37 | Day surgery (SDC) | payer MEDICARE ==
[2020-01-26 12:32] VITALS: RESP 16; TEMP 97.5
[2020-01-26 12:56] LABS: Mean Platelet Volume 8.4; Platelet Count 104 k/uL (150-450)
[2020-01-26 13:25] LABS: Prothrombin Time 10.4 sec (9.0-12.0)
[2020-01-26 15:21] VITALS: BP 143/65; PULSE 64
--- NOTE | 2020-01-26 18:12 | US ---
EXAMINATION TYPE: US paracentesis abd w/image DATE OF EXAM: 01/26/2020 CLINICAL HISTORY: Malignant ascites. Liver cell carcinoma. COMPARISON: Ultrasound-guided paracentesis 01/14/2020. BODY MAN: Dr. Wendy Felix PROCEDURE: Preprocedure preliminary ultrasound imaging demonstrates large volume ascites. The procedure was discussed with the patient. The risks, complications, benefits, and alternatives we re discussed and any questions were answered. Informed consent was obtained. The patient was placed s upine on the ultrasound table and prepped and draped in the usual sterile fashion. All elements of maximal barrier technique were utilized. Under ultrasound guidance, access into the left lower quadrant was obtained with a 5 Lao one-step centesis catheter. Approximately 6.25 liters of clear serous fluid was removed. Catheter was removed and sterile bandage was applied. The patient was stable throughout the procedure and remained stable upon discharge from Department of Radiology. IMPRESSION: Successful ultrasound-guided paracentesis, with removal of 6.25 liters of clear serous fluid.
== END 2020-01-26 15:35 | disposition home or self-care (01) ==
LOC: RADPROMAIN 11:37
PROVIDERS: ATTEND Family Medicine
DX: C22.0 Liver cell carcinoma (principal); R18.0 Malignant ascites; K74.60 Unspecified cirrhosis of liver
CPT/HCPCS: 36415; 49083; 85049; 85610

== ENCOUNTER 2020-02-05 11:47 | Day surgery (SDC) | payer MEDICARE ==
[2020-02-05 12:27] VITALS: RESP 18; TEMP 97.9
[2020-02-05 12:34] LABS: Mean Platelet Volume 8.5; Platelet Count 109 k/uL (150-450)
[2020-02-05 12:52] LABS: Prothrombin Time 10.1 sec (9.0-12.0)
[2020-02-05 13:51] VITALS: PULSE 62
[2020-02-05 15:06] VITALS: BP 133/76
--- NOTE | 2020-02-05 16:21 | US ---
EXAMINATION TYPE: US paracentesis abd w/image DATE OF EXAM: 02/05/2020 COMPARISON: NONE HISTORY: Ascites. PROCEDURE: Maximal barrier technique was utilized. The skin overlying a suitable pocket of fluid was localized with ultrasound and the overlying skin was prepped and draped. Ultrasound was utilized with sterile technique. Lidocaine was used for local anesthesia and a skin jose made with a scalpel. Catheter was advanced under direct ultrasound guidance into a suitable pocket of fluid and approximately 5.4 liter s of cloudy pink fluid were removed. Catheter was withdrawn and hemostasis achieved. There is no im mediate complication; the patient is discharged in stable condition. IMPRESSION: STATUS POST ULTRASOUND GUIDED PARACENTESIS FOR PALLIATION OF ASCITES. THIS PROCEDURE WA S PERFORMED BY THE UNDERSIGNED.
== END 2020-02-05 15:00 | disposition home or self-care (01) ==
LOC: RADPROMAIN 11:47
PROVIDERS: ATTEND Family Medicine
DX: K70.30 Alcoholic cirrhosis of liver without ascites (principal); C22.0 Liver cell carcinoma
CPT/HCPCS: 36415; 49083; 82565; 82947; 85049; 85610

== ENCOUNTER 2020-02-15 12:09 | Day surgery (SDC) | payer MEDICARE ==
[2020-02-15 12:42] VITALS: TEMP 97.6
[2020-02-15 12:42] LABS: Mean Platelet Volume 8.2; Platelet Count 100 k/uL (150-450)
[2020-02-15 14:15] VITALS: RESP 20
[2020-02-15 14:54] VITALS: BP 140/68; PULSE 64
--- NOTE | 2020-02-15 15:11 | US ---
Ultrasound-guided paracentesis. DATE OF EXAM: 02/15/2020 CLINICAL HISTORY: Ascites The procedure was discussed with the patient. The risks, complications, benefits, and alternatives we re discussed and any questions were answered. Informed consent was obtained. The patient was placed s upine on the ultrasound table and prepped and draped in the usual sterile fashion. All elements of maximal barrier technique were utilized. Under ultrasound guidance, access into the right lower quadrant was obtained, via the paracentesis catheter system and direct ultrasound guidanc e. Approximately 6.5 liters of straw-colored fluid was removed. The patient was stable throughout the pr ocedure and remained stable upon discharge from Department of Radiology. IMPRESSION: Successful paracentesis under ultrasound guidance.
== END 2020-02-15 14:54 | disposition home or self-care (01) ==
LOC: RADPROMAIN 12:09
PROVIDERS: ATTEND Family Medicine
DX: R18.0 Malignant ascites (principal); C22.0 Liver cell carcinoma; K74.60 Unspecified cirrhosis of liver
CPT/HCPCS: 36415; 49083; 82565; 82947; 85049; 85610

== ENCOUNTER 2020-02-25 12:00 | Day surgery (SDC) | payer MEDICARE ==
[2020-02-25 12:35] VITALS: TEMP 98.2
[2020-02-25 12:44] LABS: Mean Platelet Volume 8.2; Platelet Count 100 k/uL (150-450)
[2020-02-25 12:47] LABS: Prothrombin Time 10.1 sec (9.0-12.0)
[2020-02-25 14:38] VITALS: RESP 20
[2020-02-25 15:17] VITALS: BP 133/68; PULSE 67
--- NOTE | 2020-02-25 16:35 | US ---
EXAMINATION TYPE: US paracentesis abd w/image DATE OF EXAM: 02/25/2020 CLINICAL HISTORY: Malignant ascites. Liver cell carcinoma. 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 Wendy Felix PROCEDURE: Preprocedure preliminary ultrasound imaging demonstrates large volume ascites. The procedure was discussed with the patient. The risks, complications, benefits, and alternatives we re discussed and any questions were answered. Informed consent was obtained. The patient was placed s upine on the ultrasound table and prepped and draped in the usual sterile fashion. All elements of maximal barrier technique were utilized. Under ultrasound guidance, access into the right lower quadrant was obtained with a 5 Khmer one-step centesis catheter. Approximately 5.4 liters of clear serous fluid was removed. Catheter was removed and sterile bandage was applied. The patient was stable throughout the procedure and remained stable upon discharge from Department of Radiology. IMPRESSION: Successful ultrasound-guided paracentesis, with removal of 5.4 liters of clear serous fluid.
== END 2020-02-25 15:16 | disposition home or self-care (01) ==
LOC: RADPROMAIN 12:00
PROVIDERS: ATTEND Family Medicine
DX: R18.0 Malignant ascites (principal); C22.0 Liver cell carcinoma; K70.30 Alcoholic cirrhosis of liver without ascites
CPT/HCPCS: 36415; 49083; 82947; 85049; 85610

== ENCOUNTER 2020-03-07 11:33 | Day surgery (SDC) | payer MEDICARE ==
[2020-03-07 12:16] LABS: Mean Platelet Volume 8.3; Platelet Count 123 k/uL (150-450)
[2020-03-07 12:22] VITALS: TEMP 97.5
[2020-03-07 12:30] LABS: Prothrombin Time 10.4 sec (9.0-12.0)
[2020-03-07 13:47] VITALS: RESP 20
[2020-03-07 14:23] VITALS: BP 126/72; PULSE 65
--- NOTE | 2020-03-07 14:51 | US ---
EXAMINATION TYPE: US paracentesis abd w/image DATE OF EXAM: 03/07/2020 COMPARISON: NONE HISTORY: Ascites. PROCEDURE: Maximal barrier technique was utilized. The skin overlying a suitable pocket of fluid was localized with ultrasound and the overlying skin was prepped and draped. Ultrasound was utilized with sterile technique. Lidocaine was used for local anesthesia and a skin jose made with a scalpel. Catheter was advanced under direct ultrasound guidance into a suitable pocket of fluid and approximately 6.5 liter s of serous fluid were removed. Catheter was withdrawn and hemostasis achieved. There is no immedia te complication; the patient is discharged in stable condition. IMPRESSION: STATUS POST ULTRASOUND GUIDED PARACENTESIS FOR PALLIATION OF ASCITES. THIS PROCEDURE WA S PERFORMED BY THE UNDERSIGNED.
== END 2020-03-07 14:35 | disposition home or self-care (01) ==
LOC: RADPROMAIN 11:33
PROVIDERS: ATTEND Family Medicine
DX: R18.0 Malignant ascites (principal); C22.0 Liver cell carcinoma; K70.31 Alcoholic cirrhosis of liver with ascites
CPT/HCPCS: 36415; 49083; 82565; 82947; 85049; 85610

== ENCOUNTER 2020-03-16 12:06 | Day surgery (SDC) | payer MEDICARE ==
[2020-03-16 12:42] LABS: Mean Platelet Volume 8.1; Platelet Count 110 k/uL (150-450)
[2020-03-16 12:50] LABS: Prothrombin Time 10.3 sec (9.0-12.0)
[2020-03-16 14:02] VITALS: RESP 18
[2020-03-16 15:01] VITALS: BP 121/69; PULSE 68
--- NOTE | 2020-03-16 16:15 | US ---
EXAMINATION TYPE: US paracentesis abd w/image DATE OF EXAM: 03/16/2020 CLINICAL HISTORY: Ascites COMPARISON: 03/07/2020 ultrasound guided paracentesis ANTI [employer] MISSILEMAN: Dr. Wendy Felix PROCEDURE: Preprocedure preliminary ultrasound imaging demonstrates large volume ascites. The procedure was discussed with the patient. The risks, complications, benefits, and alternatives we re discussed and any questions were answered. Informed consent was obtained. The patient was placed s upine on the ultrasound table and prepped and draped in the usual sterile fashion. All elements of maximal barrier technique were utilized. Under ultrasound guidance, access into the right lower quadrant was obtained with a 5 Vietnamese one-step centesis catheter. Approximately 5.2 liters of clear serous fluid was removed. Catheter was removed and sterile bandage was applied. The patient was stable throughout the procedure and remained stable upon discharge from Department of Radiology. IMPRESSION: Successful ultrasound-guided paracentesis, with removal of 5.2 liters of clear serous fluid.
== END 2020-03-16 15:05 | disposition home or self-care (01) ==
LOC: RADPROMAIN 12:06
PROVIDERS: ATTEND Family Medicine
DX: C22.0 Liver cell carcinoma (principal); R18.0 Malignant ascites; K74.60 Unspecified cirrhosis of liver
CPT/HCPCS: 49083; 82565; 82947; 85049; 85610